=== PATIENT | female | born 1975 | race African-American/Black ===

== ENCOUNTER 2017-02-16 06:11 | Inpatient (IN) ==
[2017-02-16] MEDS ORDERED: SODIUM CHLORIDE 0.9% 1,000 ML IV STA ×2 (06:39→07:56)
[2017-02-16] MEDS ORDERED: ONDANSETRON 4 MG/2 ML VIAL IV STA (06:39)
[2017-02-16 07:11] LABS: Basophils # 0.1 10*3/uL (0.0-0.2); Basophils % 0.4 % (0.0-0.8); Eosinophils % 0.2 % (0.00-10.9); Hematocrit 40.7 VOL% (35.7-47.0); Hemoglobin 13.7 GM/DL (12.0-16.0); Immature Granulocytes % 0.6 %; Immature Granulocytes Absolute 0.08 #; Lymphocytes # 2.1 10*3/uL (1.4-4.0); Lymphocytes % 14.6 % (21.3-54.2); Mean Corpuscular HGB Conc 33.7 GM/DL (32-36); Mean Corpuscular Hemoglobin 31 PG (27-34); Mean Corpuscular Volume 92.3 FL (87-102); Mean Platelet Volume 11.9 FL (9.6-12.0); Monocytes # 0.8 10*3/uL (0.11-0.8); Monocytes % 5.6 % (1.7-12.7); Neutrophils % 78.6 % (38.7-73.9); Platelet Count 307 T/CUMM (130-400); Red Blood Count 4.41 MC/CUMM (3.8-5.5); Red Cell Distribution Width 13.4 % (9.3-17.3)
[2017-02-16 07:40] LABS: Albumin 4.2 G/DL (3.4-5.0); Bilirubin,Total 1.5 MG/DL (0.2-1.0); Calcium 9.7 MG/DL (8.5-10.1); Osmolality,Calculated 281.2 MOS/KG (273-304); Potassium 4.6 MMOL/L (3.5-5.1); Total Protein 7.9 G/DL (6.4-8.3)
[2017-02-16 08:08] LABS: Apearance,Urine Slightly Hazy (Clear); Bacteria,Urine Occasional /HPF (Few); Bilirubin,Urine Negative (Negative); Blood, Urine Negative (Negative); Calcium Oxalate Crystals,Urine Moderate /HPF (Few); Glucose,Urine (UA) Negative (Negative); Hyaline Casts,Urine 43 /LPF (0-3); Ketones,Urine Negative (Negative); Mucus,Urine Occasional /LPF (Occasional); Nitrite,Urine Negative (Negative); Protein,Urine 30 MG/DL; RBC,Urine 1 /HPF (0-4); Squamous Epithelial Cell,Urine Occasional /HPF (0-10); Urine Color Yellow (Yellow); Urine Specific Gravity 1.019 (1.001-1.035); Urine Urobilinogen < 2.0 EU/DL (0.2-1.0); WBC,Urine 1 /HPF (0-6)
--- NOTE | 2017-02-16 09:59 | CT Report ---
CT abdomen pelvis Indication: Intractable nausea vomiting Comparison: 05 August 2016 Technique: Axial CT imaging of the abdomen and pelvis is performed without intravenous contrast. Oral contrast was used Findings: Cardiac and lung bases are within normal limits CT abdomen: The liver spleen pancreas and adrenal glands are normal in size and density. No evidence of focal lesion is demonstrated in these solid organs. . The gallbladder is been removed. Kidneys are normal in size and density. No evidence of hydronephrosis or nephrolithiasis is seen. The bowel caliber is normal and no wall thickening or adjacent inflammatory change is seen. No evidence of free fluid or free air is present. Small fat-containing umbilical hernias are present. Appendix appears normal. CT pelvis: The bowel and bladder appear within normal limits. Soft tissue density is present in the right side of the pelvis 3.6 cm maximum dimension likely ovary appears increased since previous exam. The uterus is not seen. A left ovarian cyst on previous exam has resolved. Impression: Increased right ovary size when compared to previous study. No other significant changes. This CT exam was performed using one or more the following dose reduction techniques: Automated exposure control, adjustment of the MA and/or KV according to patient size, or use of iterative reconstruction technique. PROCEDURE INTERPRETED AT [facility] DEPARTMENT OF RADIOLOGY Final Report Signed by: Dr. Stuart De Guzman
--- NOTE | 2017-02-16 10:44 | Emergency Department Note ---
Roc Khanna Rolonda, am scribing for, and in the presence of, Richard Bowman MD 06:44. Colby Khanna Doug C, MD, personally performed the services described in this documentation, ascribed by Stephen Brian in my presence, and it is both accurate and complete . Arrival - Arrival Chief Complaint: Nausea/Vomiting/Diarrhea Stated Complaint: dizziness throw up cant keep food down ED Nursing Triage Note: c/o n/v with dizziness that started at approx 5pm yesterday. last bm was yesterday, pt reports bm was "soft". pt states that she has been unable to pass gas since. denies urinary s/s. Mode of Arrival: Ambulatory Limitations: No Limitations Source: Patient, Old Records Reviewed, RN Notes Reviewed - History of Present Illness HPI Narrative: Patient is a 41-year-old black female who presents to the emergency room with persistent nausea and vomiting and weakness beginning yesterday. Patient states she is unable to keep anything down and has vomited innumerable times. Patient states has not had any diarrhea and has not seen any blood in her vomitus. She denies melena. Patient states she feels weak and has had a subjective fever as well. Patient did take her blood pressure medicine this morning and she is hypotensive on arrival to the emergency room. She tells me she had a small bowel obstruction secondary to incarcerated hernia several years ago requiring emergency surgery. Patient states she is not having any abdominal pain this time. Onset (ago): day(s) Consistency: constant Severity: moderate Severity scale (1-10): 4 Date of Last Menstrual Period: hysterectomy Allergies/Adverse Reactions: Allergies Allergy/AdvReac Type Severity Reaction Status Date / Time No Known Allergies Allergy Verified 08/05/16 14:48 Home Medications: Home Medications Medication Instructions Recorded Confirmed Type Aspirin [Ecotrin] 81 mg PO DAILY #30 tablet. 01/17/16 02/16/17 Rx Citalopram [CeleXA] 40 mg PO DAILY 01/17/16 02/16/17 History Methocarbamol [Methocarbamol] 750 mg PO Q8H PRN 01/17/16 02/16/17 History tiZANidine [Zanaflex] 2 mg PO BEDTIME 01/17/16 02/16/17 History Hydrocodone/Acetaminophen [Murdo 1 each PO Q4H PRN 02/16/17 02/16/17 History 10-325 Tablet] Lisinopril/Hydrochlorothiazide 1 each PO DAILY 02/16/17 02/16/17 History [Lisinopril-Hctz 10-12.5 mg Tab] dimenhyDRINATE TAB [Dramamine] 50 mg PO Q4-6H PRN 02/16/17 02/16/17 History Review of System - Review of System 12 point system: reviewed and no additional remarkable complaints except as stated - Review of System Constitutional: Present: fever. Absent: chills Eyes: Absent: discharge Head/Ears/Nose/Throat: Absent: earache, epistaxis Respiratory: Absent: cough, respiratory distress Cardiovascular: Absent: chest pain, dyspnea on exertion Gastrointestinal: Present: nausea, vomiting Genitourinary female: Absent: dysuria Musculoskeletal: Absent: arm pain, back pain, neck pain Skin: Absent: rash Neurological: Present: vertigo. Absent: headache, numbness Medical,Surgical,& Family Hx - Medical History Cardio: History of: Hypertension Gastrointestinal: History of: GI Problems Musculoskeletal: History of: Musculoskeletal Problems (chronic pain) - Surgical History Abdominal Surgeries: Surgical HX of: Abdominal Surgery (sbo), Appendectomy, Cholecystectomy, Hernia Repair Reproductive Surgeries: Surgical HX of;: Hysterectomy - Social History Smoking Status: Never smoker Frequency of Alcohol Use: None Type of Drug Use: None Exam Vital Signs: Vital Signs Temperature 97.7 F 02/16/17 06:38 Pulse Rate 54 L 02/16/17 09:30 Respiratory Rate 16 02/16/17 09:30 Blood Pressure 114/53 02/16/17 09:30 O2 Sat by Pulse Oximetry 100 02/16/17 09:30 - General General appearance: alert, in no apparent distress - Head Head exam: Present: atraumatic, normocephalic - Eye Eye exam: Present: PERRL, EOMI - ENT ENT exam: Present: normal exam, mucous membranes moist. Absent: mucous membranes dry - Neck Neck exam: Present: full ROM. Absent: tenderness - Chest Chest inspection: Present: symmetric chest wall rise. Absent: tenderness - Respiratory Respiratory exam: Present: normal lung sounds bilaterally. Absent: wheezes - Cardiovascular Cardiovascular exam: Present: regular rate, normal rhythm, normal heart sounds. Absent: bradycardia - Abdominal Exam Abdominal exam: Present: soft, normal bowel sounds. Absent: tenderness, guarding, rebound - Extremities Exam Extremities exam: Present: full ROM. Absent: tenderness - Back Exam Back exam: Present: full ROM. Absent: tenderness - Neurological Exam Neurological exam: Present: alert, oriented X3, CN II-XII intact. Absent: motor sensory deficit - Psychiatric Psychiatric exam: Present: normal affect, normal mood - Skin Skin exam: Present: warm, dry, intact, normal color. Absent: rash Course Course Narrative: Patient's clinical presentation, laboratory and radiograph findings were discussed with Yoly who is covering the hospitalist service. She will see the patient here in the emergency room and evaluate for admission. Results - Labs CBC & BMP: 02/16/17 06:56 02/16/17 06:56 Lab Results: I have reviewed the patients labs Labs: Laboratory Tests 02/16/17 06:56 WBC 14.0 H RBC 4.41 Hgb 13.7 Hct 40.7 Plt Count 307 Neut % (Auto) 78.6 H Lymph % (Auto) 14.6 L Neut # (Auto) 11.0 H Laboratory Tests 02/16/17 06:56 Lactic Acid 1.2 Laboratory Tests 02/16/17 06:56 Sodium 134 L Potassium 4.6 Chloride 96 L Carbon Dioxide 29 BUN 50 H Creatinine 3.50 H GFR Calculation 19 Glucose 117 H Total Bilirubin 1.50 H AST 33 Alkaline Phosphatase 120 H Globulin 3.7 H Lipase 500.0 H Laboratory Tests 02/16/17 06:56 Urine pH 5.0 Ur Specific [place] 1.019 Urine Protein 30 Urine Glucose (UA) Negative Urine Ketones Negative Urine Blood Negative Urine Nitrate Negative Urine Bilirubin Negative Urine Urobilinogen < 2.0 H Urine Leukocytes Negative Urine RBC 1 Urine WBC 1 Ur Squamous Epith Cells Occasional Calcium Oxalate Crystal Moderate Urine Bacteria Occasional Hyaline Casts 43 Urine Mucus Occasional Ur Culture Indicated? Not indicated - Diagnostic Findings Procedure: CT Abdomen and Pelvis: report reviewed by me (Increased right ovary size when compared to previous study. No other significant changes.) Disposition Clinical Impression: Dehydration, Gastroenteritis Case discussed with: patient Disposition: Still a Patient Condition: Stable Time of Disposition: 10:43
[2017-02-16] MEDS ORDERED: MAGNESIUM SULF RIDER 4 GM in PREMIX 1 EACH IV PRN (10:54)
[2017-02-16] MEDS ORDERED: MAGNESIUM SULF RIDER 2 GM in PREMIX 1 EACH IV PRN (10:54)
[2017-02-16] MEDS ORDERED: POTASSIUM CHLORIDE RIDER 10 MEQ in PREMIX 1 EACH IV PRN (10:54)
[2017-02-16] MEDS ORDERED: ONDANSETRON 4 MG/2 ML VIAL IV PRN (10:54)
--- NOTE | 2017-02-16 11:41 | Hospitalist History & Physical ---
<Iris Hartda - Last Filed: 02/16/17 11:00> Assessment and Plan (1) Dehydration Status: Acute Assessment and plan: The patient is obviously dry. BUN and creatinine noted at 50 and 3.5. We will gently rehydrate, control nausea and vomiting, and reassess in a.m. Current Visit: Yes (2) Gastroenteritis Status: Acute Assessment and plan: We will start empiric antibiotic coverage, gently rehydrate, antiemetics, PPIs, DVT prophylaxis. Will reassess in a.m. Current Visit: Yes (3) Incarcerated ventral hernia Status: Acute Assessment and plan: Patient had incarcerated ventral hernia and pain in the past in which she was completely asymptomatic. We will monitor the patient very closely. At the time of the previous encounter in which the patient had an incarcerated ventral hernia, she experienced no abdominal pain or significant gastrointestinal symptoms. CT scan abdomen and pelvis was essentially unremarkable. We will monitor for any acute changes. Current Visit: No History of Present Illness Chief complaint: Nausea and vomiting History of present illness: This is a very pleasant 41-year-old female that presented to the ED at [facility] this morning for the evaluation of nausea and vomiting. Patient has a medical history significant for hypertension, small bowel obstruction, incarcerated ventral epigastric incisional hernia, and chronic pain. Patient has a surgical history of appendectomy, cholecystectomy, hysterectomy, and reduction of colon with mesh repair of hernia defect (2014). The patient reported the onset of symptoms 1 day prior to presentation. She reported multiple episodes of nausea and vomiting. In addition, the patient reported that she had gradually become weaker and been febrile on several occasions. She denied abdominal pain, hematochezia or melena at the time of ED encounter. She reported that the symptoms became unbearable and she decided to present to the ED for further evaluation. The patient was assessed at the time of ED presentation. She was noted to be grossly hypotensive; the blood pressure noted at 85/56 and experienced a gradual decline in her heart rate with a heart rate as low as 53. Fluid replacement was initiated; and the blood pressures improved. Labs were obtained ; complete blood count reported white blood cell count 14.0, hemoglobin 13.7, hematocrit 40.7, platelet count 307. Comprehensive metabolic profile reported sodium at 134, potassium 4.6, chloride 96, BUN 50, creatinine 3.50, glucose 117 , lactic acid 1.2, calcium 9.7, total bilirubin 1.50, AST 33, ALT 44, alkaline phosphatase 120, albumin 4.2, and lipase at 500.0. Urinalysis reported moderate amount of calcium oxalate crystals, occasional urine bacteria, and hyaline casts 243. CT scan abdomen and pelvis reported increased right ovary size when compared to previous study. After brief discussion with both Dr. Bowman and Dr. Munguia, the patient will be admitted to the hospitalist services for continuation of care. Patient's CODE STATUS has been discussed; patient is a FULL CODE. Medications have been reviewed and reconciled. Home Medications Medication Instructions Recorded Confirmed Type Methocarbamol [Methocarbamol] 750 mg PO Q8H PRN 01/17/16 02/16/17 History tiZANidine [Zanaflex] 2 mg PO BEDTIME 01/17/16 02/16/17 History Hydrocodone/Acetaminophen [[place]ay 1 each PO Q4H PRN 02/16/17 02/16/17 History 10-325 Tablet] Lisinopril/Hydrochlorothiazide 10 - 12.5 mg PO DAILY 02/16/17 02/16/17 History [Lisinopril-Hctz 10-12.5 mg Tab] Meclizine HCl 25 mg PO Q4HR PRN 02/16/17 02/16/17 History Allergies Allergy/AdvReac Type Severity Reaction Status Date / Time No Known Allergies Allergy Verified 08/05/16 14:48 Medical,Surgical,& Family Hx - Medical History Cardio: History of: Hypertension Gastrointestinal: History of: GI Problems Musculoskeletal: History of: Musculoskeletal Problems (chronic pain) - Surgical History Abdominal Surgeries: Surgical HX of: Abdominal Surgery (sbo), Appendectomy, Cholecystectomy, Hernia Repair Reproductive Surgeries: Surgical HX of;: Hysterectomy - Social History Smoking Status: Never smoker Frequency of Alcohol Use: None Type of Drug Use: None 12 point system: reviewed and no additional remarkable complaints except as stated Exam - Constitutional Vitals: Period Temp Pulse Resp BP Sys/Sutton Pulse Ox Last 24 Hr 97.5 F-97.7 F 53-89 16-18 74-114/49-61 97-100 General appearance: mild distress - Head Head exam: Present: normal inspection, normocephalic, atraumatic - Eye Eye exam: Present: EOMI Pupils: Present: RELL, normal accommodation - ENT ENT exam: Present: normal exam, normal external ear exam, normal oropharynx - Neck Neck exam: Present: normal inspection. Absent: lymphadenopathy, meningismus, thyromegaly - Respiratory Respiratory exam: Present: clear to auscultation bilaterally. Absent: rales, rhonchi, stridor, wheezes - Cardiovascular Cardiovascular exam: Present: bradycardia. Absent: carotid bruit, diastolic murmur, gallop, JVD, rubs, systolic murmur - GI/Abdominal GI/Abdominal exam: Present: normal bowel sounds, soft. Absent: firm, guarding, tenderness - Extremities Exam Extremities exam: Present: normal inspection, normal capillary refill, full ROM. Absent: edema - Back Exam Back exam: Present: normal inspection - Neurological Exam Neurological exam: Present: alert, oriented X3, CN II-XII intact - Psychiatric Psychiatric exam: Present: normal affect, normal mood - Skin Skin exam: Present: normal color, warm, dry Results - Labs CBC & BMP: 02/16/17 06:56 02/16/17 06:56 Lab Results: I have reviewed the past 24 hour labs <Sincere Munguia - Last Filed: 02/16/17 15:14> History of Present Illness History of present illness: Patient seen and examined independently of LEATHER SPONGER Tanner, agree with history, assessment and plan as documented. She reports nausea and vomiting starting last night, associated with dizziness and weakness. In the ED noted to have hypotension, acute kidney injury and mild leukocytosis. UA unimpressive. No overt signs of infection at this time. Will gently hydrate with IV fluids. Check CXR. Also of note is that her lipase is elevated some at 500, denies epigastric pain and is now asking for more food. Recheck labs in am. Exam - Constitutional Vitals: Period Temp Pulse Resp BP Sys/Sutton Pulse Ox Last 24 Hr 97.5 F-98.4 F 53-89 16-18 74-117/49-77 97-100 Results - Labs CBC & BMP: 02/16/17 06:56 02/16/17 06:56
[2017-02-16] MEDS: CIPROFLOXACIN INJ 400 MG in PREMIX 1 EACH IV SCH ×2 (13:17→22:08)
[2017-02-16] MEDS: SODIUM CHLORIDE 0.9% 1,000 ML IV SCH (13:17)
[2017-02-16] MEDS: PANTOPRAZOLE 40 MG VIAL IV SCH (13:17)
--- NOTE | 2017-02-16 18:31 | XRay Report ---
XR chest 1V portable Indication: Cough, leukocytosis Comparison: 17 January 2016 Findings: The heart and mediastinum are normal in size and configuration. The pulmonary vascularity is normal in caliber. No lung infiltrates, effusions, pneumothorax or other abnormality is demonstrated. Impression: Normal chest x-ray PROCEDURE INTERPRETED AT [facility] DEPARTMENT OF RADIOLOGY Final Report Signed by: Dr. Stuart De Guzman
[2017-02-17] MEDS: SODIUM CHLORIDE 0.9% 1,000 ML IV SCH ×4 (02:37→20:38)
[2017-02-17 07:17] LABS: Basophils # 0.1 10*3/uL (0.0-0.2); Basophils % 0.7 % (0.0-0.8); Eosinophils # 0.3 10*3/uL (0.0-0.87); Eosinophils % 4.1 % (0.00-10.9); Hemoglobin 10.9 GM/DL (12.0-16.0); Immature Granulocytes % 0.4 %; Immature Granulocytes Absolute 0.03 #; Lymphocytes # 3.4 10*3/uL (1.4-4.0); Lymphocytes % 47.9 % (21.3-54.2); Mean Corpuscular HGB Conc 32.1 GM/DL (32-36); Mean Corpuscular Hemoglobin 30 PG (27-34); Mean Corpuscular Volume 94.7 FL (87-102); Mean Platelet Volume 12.6 FL (9.6-12.0); Monocytes # 0.6 10*3/uL (0.11-0.8); Monocytes % 8.3 % (1.7-12.7); Neutrophils # 2.7 10*3/uL (1.4-7.4); Neutrophils % 38.6 % (38.7-73.9); Platelet Count 210 T/CUMM (130-400); Red Blood Count 3.59 MC/CUMM (3.8-5.5); Red Cell Distribution Width 13.6 % (9.3-17.3)
[2017-02-17 07:41] LABS: Albumin 3.1 G/DL (3.4-5.0); Bilirubin,Total 0.8 MG/DL (0.2-1.0); Calcium 8.2 MG/DL (8.5-10.1); Magnesium 2.3 MG/DL (1.8-2.4); Osmolality,Calculated 279.7 MOS/KG (273-304); Potassium 4.9 MMOL/L (3.5-5.1); Total Protein 5.8 G/DL (6.4-8.3)
[2017-02-17] MEDS: PANTOPRAZOLE 40 MG VIAL IV SCH (08:24)
[2017-02-17 09:20] LABS: Hypochromasia Slight; Microcytosis Slight; Platelet Estimate Adequate
[2017-02-17] MEDS: CIPROFLOXACIN INJ 400 MG in PREMIX 1 EACH IV SCH ×2 (10:50→23:07)
[2017-02-17] MEDS ORDERED: SODIUM CHLORIDE 0.9% 500 ML IV ONE (12:12)
--- NOTE | 2017-02-17 15:40 | Hospitalist Progress Note ---
Assessment and Plan (1) Dehydration Status: Acute Assessment and plan: Improving with IV fluids Current Visit: Yes (2) Gastroenteritis Status: Acute Assessment and plan: Improving Current Visit: Yes (3) Acute kidney injury Status: Acute Assessment and plan: Secondary to dehydration Improved with IV fluids Current Visit: Yes (4) Dizziness Status: Acute Assessment and plan: Positive for orthostatic hypotension Holding blood pressure meds, IV fluids CT head and cortiol levels Current Visit: Yes Hospitalist: Subjective Interval history: No acute events overnight. Patient feels better but is still dizzy with standing. Exam - Constitutional Vitals: Period Temp Pulse Resp BP Sys/Sutton Pulse Ox Last 24 Hr 97.0 F-98.5 F 56-74 17-20 82-131/42-71 96-100 General appearance: normal weight - Head Head exam: Present: normocephalic, atraumatic - Eye Eye exam: Present: EOMI Pupils: Present: RELL - ENT ENT exam: Present: normal exam - Neck Neck exam: Present: normal inspection - Respiratory Respiratory exam: Present: clear to auscultation bilaterally - Cardiovascular Cardiovascular exam: Present: regular rate and rhythm - GI/Abdominal GI/Abdominal exam: Present: normal bowel sounds, soft. Absent: tenderness - Extremities Exam Extremities exam: Present: normal inspection - Back Exam Back exam: Present: normal inspection - Neurological Exam Neurological exam: Present: alert, oriented X3 - Psychiatric Psychiatric exam: Present: normal affect, normal mood - Skin Skin exam: Present: warm, intact Results - Labs CBC & BMP: 02/17/17 06:02 02/17/17 06:02
--- NOTE | 2017-02-17 16:25 | ECHO Report ---
Kyle Tinajero Exam Date: 02/17/2017 10:23 Referring Physician: Technologist: Brenda Carver Age: 41 Ht (in): 63 Wt (lb): 186 Gender: F Exam Location: [facility] Echo Indications: nausea/vomiting, dizziness, dehydration, gastroenteritis, incarcerated ventral hernia BP: 90 / 70 HR: 65 Rhythm: Sinus Technical Quality: IMPRESSIONS Normal chamber sizes Normal LV systolic function with ejection fraction estimated 60% without segmental wall motion normality 1+ tricuspid regurgitation with RVSP 24 mmHg plus RAP Normal study MEASUREMENTS (Male / Female) Normal Values 2D ECHO LV Diastolic Diameter PLAX 4.3 cm 4.2 - 5.9 / 3.9 - 5.3 cm LV Systolic Diameter PLAX 2.4 cm LV Fractional Shortening PLAX 43.4 % IVS Diastolic Thickness 1.0 cm 0.6 - 1.0 / 0.6 - 0.9 cm LVPW Diastolic Thickness 1.0 cm 0.6 - 1.0 / 0.6 - 0.9 cm RV Internal Dim ED PLAX 2.7 cm Aortic Root Diameter 2.4 cm LA Systolic Diameter LX 2.9 cm 3.0 - 4.0 / 2.7 - 3.8 cm DOPPLER TR Peak Velocity 243.0 cm/s TR Peak Gradient 23.6 mmHg FINDINGS Left Ventricle Normal left ventricular size and systolic function. Normal diastolic function. left ventricular ejection fraction is estimated Right Ventricle Normal right ventricular size. Right Atrium Normal right atrial size. Left Atrium Normal left atrial size. Mitral Valve Morphologically normal mitral valve. Aortic Valve The aortic valve is trileaflet, delicate and has normal motion. Tricuspid Valve Morphologically normal tricuspid valve. Trace tricuspid valve regurgitation. Tricuspid regurgitation velocities suggest a PAP of 23.6 mmHg + RAP. Pulmonic Valve Morphologically normal pulmonic valve. Pericardium No pericardial effusion. Aorta Normal size aortic root and proximal ascending aorta. Marco Kyle (Electronically Signed) Final Date: 17 February 2017 16:24
--- NOTE | 2017-02-17 16:39 | CT Report ---
CT brain Indication: Vertigo Comparison: None available Technique: Axial CT imaging of the brain is performed without contrast with 3 mm increments. Findings: No evidence of hemorrhage, mass mass effect midline shift or acute infarct seen. The brain parenchyma attenuation and differentiation appears within normal limits. The ventricles and cisterns are normal in caliber. No cranial or skull base abnormality is identified. Impression: No evidence of abnormality demonstrated. This CT exam was performed using one or more the following dose reduction techniques: Automated exposure control, adjustment of the MA and/or KV according to patient size, or use of iterative reconstruction technique. PROCEDURE INTERPRETED AT [facility] DEPARTMENT OF RADIOLOGY Final Report Signed by: Dr. Stuart De Guzman
[2017-02-18 06:58] LABS: Basophils % 0.6 % (0.0-0.8); Eosinophils # 0.2 10*3/uL (0.0-0.87); Eosinophils % 4.7 % (0.00-10.9); Hematocrit 32.4 VOL% (35.7-47.0); Hemoglobin 10.6 GM/DL (12.0-16.0); Immature Granulocytes % 0.2 %; Immature Granulocytes Absolute 0.01 #; Lymphocytes # 2.2 10*3/uL (1.4-4.0); Lymphocytes % 44.9 % (21.3-54.2); Mean Corpuscular HGB Conc 32.7 GM/DL (32-36); Mean Corpuscular Hemoglobin 31 PG (27-34); Mean Corpuscular Volume 95.6 FL (87-102); Mean Platelet Volume 12.1 FL (9.6-12.0); Monocytes # 0.5 10*3/uL (0.11-0.8); Neutrophils # 1.9 10*3/uL (1.4-7.4); Neutrophils % 38.6 % (38.7-73.9); Platelet Count 183 T/CUMM (130-400); Red Blood Count 3.39 MC/CUMM (3.8-5.5); Red Cell Distribution Width 13.6 % (9.3-17.3); White Blood Count 4.9 T/CUMM (4-12)
[2017-02-18 07:32] LABS: Calcium 8.3 MG/DL (8.5-10.1); Eosinophils 4 % (0-10); Hypochromasia 1+; Lymphocytes 44 % (20-55); Magnesium 2.2 MG/DL (1.8-2.4); Osmolality,Calculated 281.3 MOS/KG (273-304); Ovalocytes Slight; Platelet Estimate Normal; Potassium 4.5 MMOL/L (3.5-5.1); Segmented Neutrophils 42 % (50-85); Total Cells Counted 100
[2017-02-18 07:33] LABS: Microcytosis Slight
[2017-02-18] MEDS: PANTOPRAZOLE 40 MG VIAL IV SCH (09:07)
[2017-02-18] MEDS: SODIUM CHLORIDE 0.9% 1,000 ML IV SCH ×2 (09:07→17:05)
[2017-02-18] MEDS: CIPROFLOXACIN INJ 400 MG in PREMIX 1 EACH IV SCH ×2 (11:04→22:11)
--- NOTE | 2017-02-18 17:32 | Hospitalist Progress Note ---
Assessment and Plan (1) Dehydration Status: Resolved Assessment and plan: Improving with IV fluids Current Visit: Yes (2) Gastroenteritis Status: Resolved Assessment and plan: Improving Current Visit: Yes (3) Acute kidney injury Status: Resolved Assessment and plan: Secondary to dehydration Improved with IV fluids Current Visit: Yes (4) Dizziness Status: Acute Assessment and plan: Positive for orthostatic hypotension Holding blood pressure meds, IV fluids CT head and cortiol levels Current Visit: Yes Hospitalist: Subjective Interval history: Patient is feeling better today. Denies any dizziness with standing. Am cortisol in low normal range. Possible discharge tomorrow. Exam - Constitutional Vitals: Period Temp Pulse Resp BP Sys/Sutton Pulse Ox Last 24 Hr 96.6 F-97.6 F 50-67 15-20 92-121/47-71 97-100 General appearance: normal weight - Head Head exam: Present: normocephalic, atraumatic - Eye Eye exam: Present: EOMI Pupils: Present: RELL - ENT ENT exam: Present: normal exam - Neck Neck exam: Present: normal inspection - Respiratory Respiratory exam: Present: clear to auscultation bilaterally - Cardiovascular Cardiovascular exam: Present: regular rate and rhythm - GI/Abdominal GI/Abdominal exam: Present: normal bowel sounds, soft. Absent: tenderness, rebound - Extremities Exam Extremities exam: Present: normal inspection - Back Exam Back exam: Present: normal inspection - Neurological Exam Neurological exam: Present: alert, oriented X3 - Psychiatric Psychiatric exam: Present: normal affect, normal mood - Skin Skin exam: Present: warm, intact Results - Labs CBC & BMP: 02/18/17 06:35 02/18/17 06:35
[2017-02-19] MEDS: SODIUM CHLORIDE 0.9% 1,000 ML IV SCH ×3 (04:17→13:57)
[2017-02-19] MEDS ORDERED: COSYNTROPIN 0.25 MG VIAL IV ONE (06:00)
--- NOTE | 2017-02-19 06:30 | EKG Report ---
Stationary ECG Study 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
--- NOTE | 2017-02-19 08:53 | Cardiology Consult Note ---
Rodrigo Khanna Vanessa, RN, am scribing for, and in the presence of, Cydney Licona DO 08 :52. Assessment and Plan - Time spent with patient Time spent with patient: Greater than 30 minutes (Due to assessment, planning, documentation, and medication review) (1) Bradycardia Status: Chronic Assessment and plan: Review of old chart reveals patient is chronically bradycardic with pulse rate ranging between 40 and 60 bpm. Patient is asymptomatic with this.. There is no AV block no intraventricular conduction delay she has not had syncope or near syncope. Her blood pressure is controlled. She states she occasionally has dyspnea. It might be reasonable to have the patient up and ambulated when she is clinically stable to ensure that she has appropriate chronotropic response. Nothing further to add at this time. I will be glad to see as an outpatient if needed. I discussed with Dr. Munguia. We will sign off. Please call if needed. Current Visit: Yes (2) Dizziness Status: Acute Assessment and plan: Patient has reported dizziness which was worse when standing up. She has not had any syncopal episodes. Patient is not experiencing significant bradycardia upon standing. Current Visit: Yes (3) Acute kidney injury Status: Resolved Current Visit: Yes (4) Gastroenteritis Status: Resolved Assessment and plan: This has resolved since admission. She has been treated with IV fluid and anti- emetics. Current Visit: Yes (5) Incarcerated ventral hernia Status: Chronic Assessment and plan: History of incarcerated ventral hernia. Clinically, no findings for incarcerated ventral hernia at this time. Current Visit: No (6) Hypertension Status: Chronic Assessment and plan: Well controlled at this time. This admission, patient has actually been hypotensive and has required IV fluid for volume support. Blood pressure has improved currently, she is not receiving any antihypertensive medications. Current Visit: Yes (7) GERD (gastroesophageal reflux disease) Status: Chronic Assessment and plan: PPI has been continued. 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 Tinajero is a 41 year old black female with risk factor significant for: hypertension. Past medical history includes GERD, small bowel obstruction, incarcerated ventral hernia, chronic pain. Patient was admitted to [facility] on February 16 after presenting to the ED with intractable nausea and vomiting for 24 hours prior to presentation. Upon evaluation, she was noted to be hypotensive with SBP in the 80s and bradycardic with pulse rate in the 50s. She also had an acute kidney injury with creatinine elevated at 3.5, and her lipase was greater than 500. She denied having any epigastric or abdominal pain. CT of abdomen and pelvis was benign for etiology of symptoms. Patient was admitted for hydration and treatment of gastroenteritis. Since admission, she has been gently hydrated with IV fluids. Nausea and vomiting has improved. Renal dysfunction has resolved with current creatinine 0.9. Patient has reported some dizziness which is worsened when standing. CT of the head negative for abnormality. Patient has also been given IV Cortrosyn, and she has had cortisol levels drawn which have been normal. Overnight, telemetry monitoring noted patient to have a brief heart rate of 35 and then returning to 40s. Twelve-lead EKG demonstrated sinus bradycardia in the 40s with no acute ischemic finding. Patient was asleep completely asymptomatic during this time. Cardiology was asked to see for evaluation of bradycardia. Ms. Tinajero has previously been evaluated by Dr. Ponce at [facility] for chest discomfort. In December 2015, she had a nuclear SPECT scan which showed no ischemia or EKG change. She had normal segmental wall motion with EF estimated at 58%. This admission, patient has had echocardiogram which demonstrates a normal LV size and systolic function, EF 60%, normal diastolic function, no significant valvular disease. Review of previous records dating back to 2014 note patient to have the pulse rate range between 40 and 60 bpm. In speaking with patient, she is not experiencing any dizziness, chest discomfort dyspnea, palpitations, presyncope, syncope, or other symptoms. Reports that during these times, she is sleeping. She denies snoring or holding of breath at night. Denies history of sleep apnea. Denies recent or current exertional chest pain or dyspnea. Denies orthopnea, PND, lower extremity edema. BP 107/60. Labs reviewed. H&H stable. Electrolytes within acceptable range. Creatinine 0.9, GFR 99. CC: Sincere Munguia MD - Home Medications and Allergies Home Medications: Home Medications Medication Instructions Recorded Confirmed Type Methocarbamol [Methocarbamol] 750 mg PO Q8H PRN 01/17/16 02/16/17 History tiZANidine [Zanaflex] 2 mg PO BEDTIME 01/17/16 02/16/17 History Hydrocodone/Acetaminophen [[place] 1 each PO Q4H PRN 02/16/17 02/16/17 History 10-325 Tablet] Lisinopril/Hydrochlorothiazide 10 - 12.5 mg PO DAILY 02/16/17 02/16/17 History [Lisinopril-Hctz 10-12.5 mg Tab] Meclizine HCl 25 mg PO Q4HR PRN 02/16/17 02/16/17 History Allergies/Adverse Reactions: Allergies Allergy/AdvReac Type Severity Reaction Status Date / Time No Known Allergies Allergy Verified 08/05/16 14:48 - Constitutional Constitutional: Present: fatigue. Absent: anorexia, chills, daytime sleepiness , excessive sweating, fever(s), frequent falls, lethargy, stops breathing during sleep, weakness, weight gain, weight loss - EENT Eyes: Absent: blurry vision, loss of vision Ears: Absent: decreased hearing Nose, mouth and throat: Absent: dysphagia, epistaxis, nasal congestion, neck pain, tongue swelling - Cardiovascular Cardiovascular: Present: other (No syncope no near syncope. She states she occasionally gets short of breath but this is not consistently reproducible. This occurs at her work at [employer]). Absent: chest pain at rest, chest pain with activity, dyspnea, dyspnea on exertion, edema, radiating jaw, neck or arm pain, lightheadedness, orthopnea, palpitations, PND - Respiratory Respiratory: Absent: cough, dyspnea, hemoptysis, dyspnea on exertion, change in phlegm color - Gastrointestinal Gastrointestinal: Absent: abdominal pain, constipation, cramping, diarrhea, dysphagia, early satiety, melena, nausea, vomiting - Genitourinary Genitourinary: Absent: dysuria, flank pain, hematuria - Musculoskeletal Musculoskeletal: Present: arthralgias, myalgias - Neurological Neurological: Absent: abnormal gait, confusion, dizziness, syncope, tremor(s) - Psychiatric Psychiatric: Absent: anxiety, confusion, depression - Endocrine Endocrine: Absent: cold intolerance, heat intolerance - Hematologic/Lymphatic Hematologic/Lymphatic: Absent: easy bleeding, easy bruising Medical,Surgical,& Family Hx - Medical History Cardio: History of: Hypertension No history of: Cardiac Dysrhythmia, CHF, CAD, [place], PVD, Valvular Heart Disease Psychological: No history of: Anxiety Disorders, Depression Neurology: No history of: Dementia, Seizures, TIA Endocrine: No history of: Diabetes Mellitus (IDDM), Dyslipidemia, Thyroid Disorder Respiratory: No history of: Bronchitis, Obstructive Sleep Apnea, Pulmonary Hypertension Renal: History of: Renal Problems (JUDITH this admission; resolved) Genitourinary: No history of: Recurring Urinary Tract Infections Gastrointestinal: History of: GERD, GI Problems No history of: Gastrointestinal Bleed, Hepatitis Musculoskeletal: History of: Musculoskeletal Problems (chronic pain) No history of: Back/Neck Problems Hematology: No history of: Anemia, Blood Transfusion Reaction Other: No history of: Cancer, HIV - Surgical History Cardiac Surgeries: Patient Denies: Cardiac Catheterization, Cardiac Surgery Thoracic Surgeries: Patient denies;: Organ Transplant Abdominal Surgeries: Surgical HX of: Abdominal Surgery (sbo), Appendectomy, Cholecystectomy, Hernia Repair Reproductive Surgeries: Surgical HX of;: Hysterectomy - Family History Family History: Reports;: Family Hypertension (mother and father) - Social History Smoking Status: Never smoker Frequency of Alcohol Use: None Type of Drug Use: None Functional capacity: independent ambulation Physical Examination Vital Signs Temp Pulse Resp BP Pulse Ox 97.5 F L 89 18 78/56 97 02/16/17 06:24 02/16/17 06:24 02/16/17 06:24 02/16/17 06:24 02/16/17 06:24 General: Present: No Apparent Distress HEENT: Present: PERRL, Normocephaly, Mucus Membranes Moist. Absent: Jaundice Neck: Present: Supple Neck, Midline Trachea, No JVD/HJR, No Masses, No Bruit Cardiac: Present: Regular Rhythm, No Murmur, Bradycardia (Heart rates about 50 when I examined her.) Lungs: Present: Clear Ascult./Percussion, No Wheeze, Rales, Rhonchi. Absent: Oxygen Neuro: Present: Grossly Intact. Absent: Numbness, Tingling, Weakness, Resting Tremor, Essential Tremor Abdomen: Present: Soft, Active Bowel Sounds, No Masses. Absent: Ascites, Tender , Firm Skin: Present: Clear. Absent: Rash, Suspicious Lesions, Bruising Extremities: Present: No Clubbing, No Cyanosis, No Edema, Normal Upper Extr. Pulses (3+ bilaterally), Normal Lower Extr. Pulses (3+ bilaterally), Capillary Refill (Normal), Other (Warm, dry) Result/EKG - Labs CBC & BMP: 02/18/17 06:35 02/18/17 06:35 Lab Results: I have reviewed the past 24 hour labs Labs: Laboratory Results - last 24 hr 02/18/17 02/18/17 02/19/17 06:35 08:04 06:15 Sodium 141 Potassium 4.5 Chloride 106 Carbon Dioxide 31 Anion Gap 8.5 BUN 17 Creatinine 0.90 GFR Calculation 99 BUN/Creatinine Ratio 18.00 Glucose 84 Calculated Osmolality 281.3 Calcium 8.3 L Magnesium 2.2 Cortisol Response Cortisol 8am Sample 5.3 - Diagnostic Findings Procedure: Chest x-ray: image reviewed by me, report reviewed by me, CT: image reviewed by me, report reviewed by me - EKG EKG results: interpreted by me, no acute changes EKG shows: bradycardia IMonae Shea, , personally performed the services described in this documentation, ascribed by Kellie Wallace RN in my presence, and it is both accurate and complete 852 .
[2017-02-19] MEDS: PANTOPRAZOLE 40 MG VIAL IV SCH (09:03)
[2017-02-19] MEDS: CIPROFLOXACIN INJ 400 MG in PREMIX 1 EACH IV SCH ×2 (09:03→13:56)
--- NOTE | 2017-02-19 09:13 | Discharge Summary ---
<Iris Hartda - Last Filed: 02/19/17 08:57> Hospital Course - Hospital Course Hospital Course: This is a 41-year-old female that presented to the ED at [facility] this morning of February 16, 2017 for the evaluation of nausea and vomiting. Patient has a medical history significant for hypertension, small bowel obstruction, incarcerated ventral epigastric incisional hernia, and chronic pain. Patient has a surgical history of appendectomy, cholecystectomy, hysterectomy, and reduction of colon with mesh repair of hernia defect (2014). The patient reported the onset of symptoms 1 day prior to presentation. She reported multiple episodes of nausea and vomiting. In addition, the patient reported that she had gradually become weaker and been febrile on several occasions. She denied abdominal pain, hematochezia or melena at the time of ED encounter. She reported that the symptoms became unbearable and she decided to present to the ED for further evaluation. The patient was assessed at the time of ED presentation. She was noted to be grossly hypotensive; the blood pressure noted at 85/56 and experienced a gradual decline in her heart rate with a heart rate as low as 53. Fluid replacement was initiated; and the blood pressures improved. Labs were obtained ; complete blood count reported white blood cell count 14.0, hemoglobin 13.7, hematocrit 40.7, platelet count 307. Comprehensive metabolic profile reported sodium at 134, potassium 4.6, chloride 96, BUN 50, creatinine 3.50, glucose 117 , lactic acid 1.2, calcium 9.7, total bilirubin 1.50, AST 33, ALT 44, alkaline phosphatase 120, albumin 4.2, and lipase at 500.0. Urinalysis reported moderate amount of calcium oxalate crystals, occasional urine bacteria, and hyaline casts 243. CT scan abdomen and pelvis reported increased right ovary size when compared to previous study. The patient was subsequently admitted to the hospitalist service for continuation of care. The patient was admitted and rehydrated. The patient verbalize complaints of dizziness upon standing. Orthostatic blood pressures were obtained which were positive for orthostatic hypotension. CT head without contrast was performed on February 17, 2017 which was essentially unremarkable for any acute intracranial processes. Echocardiogram was ordered at the time of admission and reported normal left ventricular systolic function with an ejection fraction estimated at 60% without segmental wall abnormality however +1 tricuspid regurgitation with R VSP 24 mmHg plus RAP. The patient's oral antihypertensive agents were held. Overnight the patient was noted to have profound bradycardia with a heart rate between 40 and 60. A cardiology evaluation was requested. The patient was determined to be chronically bradycardic with a pulse rate ranged between 40 and 60 however asymptomatic. EKG was evaluated in no intraventricular conduction delay was noted nor at the patient experienced any syncope or near syncope. Acute kidney injury resolved with IV hydration. Random cortisol and morning cortisol found to be in low normal range. Cosyntropin stimulation test was within normal limits. Patient is now doing better with no dizziness on standing. Orthostatic hypotension has resolved with IV hydration. If this problem returns a more in depth endocrinology work-up might be warranted. After cardiology evaluation, the patient is appropriate for discharge to follow- up with her primary care physician as indicated. She can return to work as early as 02/22/17. Diagnosis - Discharge Diagnosis (1) Dehydration Status: Resolved (2) Gastroenteritis Status: Resolved (3) Incarcerated ventral hernia Status: Chronic Discharge Plan - Discharge Data Disposition: Disch To Home/Self Care - Discharge Medications Continue tiZANidine [Zanaflex] 2 mg PO BEDTIME Hydrocodone/Acetaminophen [[place]idan 10-325 Tablet] 1 each PO Q4H PRN PRN Reason: Pain Discontinued Methocarbamol [Methocarbamol] 750 mg PO Q8H PRN PRN Reason: Muscle Spasm Lisinopril/Hydrochlorothiazide [Lisinopril-Hctz 10-12.5 mg Tab] 10 - 12.5 mg PO DAILY Meclizine HCl 25 mg PO Q4HR PRN PRN Reason: Motion Sickness - Follow Up or Referral - Forms/Instructions Instructions: Dehydration (GEN), Acute Kidney Injury (GEN), Bradycardia (GEN) Exam - Constitutional Vitals: Period Temp Pulse Resp BP Sys/Sutton Pulse Ox Last 24 Hr 96.8 F-98.5 F 41-64 14-20 100-131/54-70 93-100 Discharge Results Labs on day of discharge: Labs from last 24 hours 02/19/17 06:15 Cortisol Response DS: Provider Date of admission: 02/16/17 10:53 Primary care physician: . No PCP Attending physician on admission: Sincere Munguia MD Consults: 02/19/17 03:39 Consult to Physician [CONS] Routine Comment: bradycardia with HRs in the 30s Consulting Provider: Mack De When should Consulting Provider be notified: In am Person Notified: STEPHENIE Date Notified: 02/19/17 Time Notified: 09:30 Discharging clinician: Kori Hart CNP <Sincere Munguia - Last Filed: 02/19/17 10:45> Hospital Course - Time spent with patient Time with patient DS: Less than 30 minutes (35) Diagnosis - Discharge Diagnosis (1) Dehydration Status: Resolved (2) Gastroenteritis Status: Resolved (3) Acute kidney injury Status: Resolved (4) Dizziness Status: Resolved Discharge Plan - Discharge Data Condition at Discharge: Stable Discharge Diet: advance to your usual diet Activity: increase activity as tolerated Hygiene: no restrictions Weight Bearing at Discharge: weight bear as tolerated Contact your physician if you experience:: fever over 101 Exam - Constitutional General appearance: normal weight - Head Head exam: Present: normocephalic, atraumatic - Eye Eye exam: Present: EOMI Pupils: Present: RELL - ENT ENT exam: Present: normal exam - Neck Neck exam: Present: normal inspection - Respiratory Respiratory exam: Present: clear to auscultation bilaterally - Cardiovascular Cardiovascular exam: Present: regular rate and rhythm - GI/Abdominal GI/Abdominal exam: Present: normal bowel sounds, soft. Absent: tenderness, rebound - Extremities Exam Extremities exam: Present: normal inspection - Back Exam Back exam: Present: normal inspection - Neurological Exam Neurological exam: Present: alert, oriented X3 - Psychiatric Psychiatric exam: Present: normal affect, normal mood - Skin Skin exam: Present: warm, intact
[2017-02-26 11:44] VITALS: BP 131/80
== END 2017-02-19 13:00 | disposition home or self-care (01) | DRG 312 ==
LOC: N.ED 06:11 → N.EDINP 10:53 → N.5E 11:49
PROVIDERS: ADMIT Internal Medicine; ATTEND Internal Medicine

== ENCOUNTER 2017-02-24 23:53 | Observation (INO) ==
[2017-02-25] MEDS ORDERED: ONDANSETRON 4 MG/2 ML VIAL IV STA (01:13)
[2017-02-25] MEDS ORDERED: MORPHINE 2 MG/1 ML SYRINGE IV STA (01:13)
[2017-02-25] MEDS ORDERED: ALUM/MAG/SIMETH/LIDO VISC 1:1 30 ML BOTTLE PO STA (01:13)
[2017-02-25] MEDS ORDERED: ASPIRIN 325 MG TABLET PO STA (01:13)
[2017-02-25] MEDS ORDERED: NITROGLYCERIN 2% OINT 1 INCH/GM PACK TOP STA (01:13)
[2017-02-25] MEDS ORDERED: ONDANSETRON 4 MG/2 ML VIAL ONE (01:20)
[2017-02-25] MEDS ORDERED: ASPIRIN 325 MG TABLET ONE (01:21)
[2017-02-25] MEDS ORDERED: ALUM/MAG/SIMETH/LIDO VISC 1:1 30 ML BOTTLE PO ONE (01:21)
[2017-02-25] MEDS ORDERED: MORPHINE 2 MG/1 ML SYRINGE ONE (01:21)
[2017-02-25] MEDS ORDERED: NITROGLYCERIN 2% OINT 1 INCH/GM PACK TOP ONE (01:21)
[2017-02-25 01:28] LABS: Basophils % 0.3 % (0.0-0.8); Eosinophils # 0.2 10*3/uL (0.0-0.87); Eosinophils % 3.9 % (0.00-10.9); Hematocrit 34.5 VOL% (35.7-47.0); Hemoglobin 11.4 GM/DL (12.0-16.0); Immature Granulocytes % 0.2 %; Immature Granulocytes Absolute 0.01 #; Lymphocytes # 3.1 10*3/uL (1.4-4.0); Mean Corpuscular Hemoglobin 31 PG (27-34); Mean Platelet Volume 12.5 FL (9.6-12.0); Monocytes # 0.5 10*3/uL (0.11-0.8); Monocytes % 8.3 % (1.7-12.7); Neutrophils # 2.2 10*3/uL (1.4-7.4); Neutrophils % 36.3 % (38.7-73.9); Platelet Count 254 T/CUMM (130-400); Red Blood Count 3.67 MC/CUMM (3.8-5.5); Red Cell Distribution Width 13.5 % (9.3-17.3); White Blood Count 6.2 T/CUMM (4-12)
[2017-02-25 01:33] LABS: INR 0.9; PT Patient Result 9.9 SECS
--- NOTE | 2017-02-25 01:33 | Emergency Department Note ---
Delmis Khanna Mantricia, am scribing for, and in the presence of, Mak Gutiérrez MD 00:33. Brock Khanna Charles R, MD, personally performed the services described in this documentation, ascribed by Sharla Benites in my presence, and it is both accurate and complete . Arrival - Arrival Chief Complaint: Chest Pain Stated Complaint: chest pain, throwing up, legs and feet swollen ED Nursing Triage Note: pt presented to triage ambulatory with c/o L chest pain that radiates to back and n/v x 5 hrs. also c/o SOB and BLE edema x 2 day. PT states she was hopitalized and discharged on 02/19/17 for same symptoms Mode of Arrival: Ambulatory Limitations: No Limitations Source: Patient Time Seen by Provider: 02/25/17 00:27 - History of Present Illness HPI Narrative: Pt is a 41 y/o black female ambulating to ED with c/o left sided chest pain that onset 2 days ago. She states that she is also experiencing SOB, dizziness, back pain, and leg swelling bilaterally. She reports that she was admitted into the hospital on 02/19 for similar sxs. Pt denies seeing a configurator yet and states that she has not had a heart cath before. No other complaints were reported to ED. Onset (ago): day(s) Consistency: constant Severity: mild Date of Last Menstrual Period: hyst Allergies/Adverse Reactions: Allergies Allergy/AdvReac Type Severity Reaction Status Date / Time No Known Allergies Allergy Verified 08/05/16 14:48 Home Medications: Home Medications Medication Instructions Recorded Confirmed Type tiZANidine [Zanaflex] 2 mg PO BEDTIME 01/17/16 02/16/17 History Hydrocodone/Acetaminophen [[place] 1 each PO Q4H PRN 02/16/17 02/16/17 History 10-325 Tablet] Review of System - Review of System Constitutional: Absent: chills, diaphoresis, fever Respiratory: Present: other (SOB). Absent: cough Cardiovascular: Present: chest pain, edema Gastrointestinal: Present: nausea, vomiting. Absent: abdominal pain, diarrhea Musculoskeletal: Present: back pain, other (LE edema ). Absent: arm pain, leg pain, neck pain Neurological: Present: vertigo Medical,Surgical,& Family Hx - Medical History Cardio: History of: Hypertension No history of: Cardiac Dysrhythmia, CHF, CAD, [place], PVD, Valvular Heart Disease Psychological: No history of: Anxiety Disorders, Depression Neurology: No history of: Dementia, Seizures, TIA Endocrine: No history of: Diabetes Mellitus (IDDM), Dyslipidemia, Thyroid Disorder Respiratory: No history of: Bronchitis, Obstructive Sleep Apnea, Pulmonary Hypertension Renal: History of: Renal Problems (JUDITH this admission; resolved) Genitourinary: No history of: Recurring Urinary Tract Infections Gastrointestinal: History of: GERD, GI Problems No history of: Gastrointestinal Bleed, Hepatitis Musculoskeletal: History of: Musculoskeletal Problems (chronic pain) No history of: Back/Neck Problems Hematology: No history of: Anemia, Blood Transfusion Reaction Other: No history of: Cancer, HIV - Surgical History Cardiac Surgeries: Patient Denies: Cardiac Catheterization, Cardiac Surgery Thoracic Surgeries: Patient denies;: Organ Transplant Abdominal Surgeries: Surgical HX of: Abdominal Surgery (sbo), Appendectomy, Cholecystectomy, Hernia Repair Reproductive Surgeries: Surgical HX of;: Hysterectomy - Family History Family History: Reports;: Family Hypertension (mother and father) - Social History Smoking Status: Never smoker Frequency of Alcohol Use: None Type of Drug Use: None Exam Vital Signs: Vital Signs Temperature 97.8 F 02/25/17 00:01 Pulse Rate 67 02/25/17 00:01 Respiratory Rate 18 02/25/17 00:01 Blood Pressure 176/102 02/25/17 00:01 O2 Sat by Pulse Oximetry 99 02/25/17 00:01 - General General appearance: alert, in no apparent distress - Head Head exam: Present: atraumatic, normocephalic, normal inspection - Eye Eye exam: Present: normal appearance, PERRL, EOMI - ENT ENT exam: Present: normal exam, normal oropharynx, mucous membranes moist, TM's normal bilaterally, normal external ear exam - Neck Neck exam: Present: normal inspection, full ROM, trachea midline. Absent: tenderness - Chest Chest inspection: Present: normal inspection, symmetric chest wall rise, tenderness (reproducible) - Respiratory Respiratory exam: Present: normal lung sounds bilaterally - Cardiovascular Cardiovascular exam: Present: regular rate, normal rhythm, normal heart sounds - Abdominal Exam Abdominal exam: Present: soft, normal bowel sounds. Absent: distention, tenderness, guarding, rebound - Extremities Exam Extremities exam: Present: normal inspection, full ROM, normal capillary refill , other (+2 LE edema bilat). Absent: tenderness, pedal edema - Back Exam Back exam: Present: normal inspection, full ROM. Absent: tenderness - Neurological Exam Neurological exam: Present: alert, oriented X3, CN II-XII intact, normal gait, reflexes normal - Psychiatric Psychiatric exam: Present: normal affect, normal mood - Skin Skin exam: Present: warm, dry, intact, normal color Course - Reevaluation(s) Reevaluation #1: Patient still having chest pain shortness of breath. Time: 02:32 - Consultations Consultation #1: Hospitalist will admit patient Time: 02:33 Results - Labs CBC & BMP: 02/25/17 00:30 02/25/17 00:30 Lab Results: I have reviewed the patients labs Disposition Clinical Impression: Chest pain, GERD (gastroesophageal reflux disease), Atypical chest pain, Costalchondritis Case discussed with: patient Disposition: Still a Patient Condition: Stable Time of Disposition: 02:33
[2017-02-25 01:42] LABS: Alanine Aminotransferase 36 U/L (13-56); Albumin 3.6 G/DL (3.4-5.0); Alkaline Phosphatase 115 U/L (45-117); Aspartate Amino Transferase 27 U/L (0-37); Bilirubin,Total < 0.39 MG/DL (0.2-1.0); Blood Urea Nitrogen 20 MG/DL (7-18); Calcium 9.6 MG/DL (8.5-10.1); Glucose 79 MG/DL (74-106); Magnesium 2.2 MG/DL (1.8-2.4); Osmolality,Calculated 278.5 MOS/KG (273-304); Potassium 4.6 MMOL/L (3.5-5.1); Sodium 139 MMOL/L (136-145); Total Protein 6.7 G/DL (6.4-8.3)
[2017-02-25 01:57] LABS: Barbiturates Screen,Urine Negative (Negative); Benzodiazepines Screen,Urine Negative (Negative); Cannabinoid Screen,Urine Negative (Negative); Opiate Screen,Urine Positive (Negative); Phencyclidine Screen,Urine Negative (Negative)
[2017-02-25 01:58] LABS: Apearance,Urine CLEAR (Clear); Bilirubin,Urine Negative (Negative); Blood, Urine Negative (Negative); Glucose,Urine (UA) Negative (Negative); Ketones,Urine Negative (Negative); Mucus,Urine Occasional /LPF (Occasional); Nitrite,Urine Negative (Negative); Protein,Urine Negative; RBC,Urine <1 /HPF (0-4); Squamous Epithelial Cell,Urine Occasional /HPF (0-10); Urine Color Colorless (Yellow); Urine Specific Gravity 1.002 (1.001-1.035); Urine Urobilinogen < 2.0 EU/DL (0.2-1.0)
[2017-02-25] MEDS ORDERED: ENOXAPARIN 100 MG/ML SYRINGE SUBCUT STA (02:31)
[2017-02-25 02:59] LABS: Eosinophils 3 % (0-10); Lymphocytes 49 % (20-55); Segmented Neutrophils 40 % (50-85)
[2017-02-25 03:01] LABS: Anisocytosis Slight; Macrocytosis Slight
[2017-02-25 03:02] LABS: Atypical Lymphocytes Few; Platelet Estimate Normal; Total Cells Counted 100
[2017-02-25] MEDS ORDERED: ENOXAPARIN 100 MG/ML SYRINGE SUBCUT ONE (03:19)
--- NOTE | 2017-02-25 03:32 | Hospitalist History & Physical ---
Assessment and Plan (1) Atypical chest pain Status: Acute Current Visit: Yes (2) Costalchondritis Status: Acute Current Visit: Yes (3) Hypertension Status: Chronic Assessment and plan: We will admit the patient service. Patient be admitted to a monitored bed. We will consult cardiology draw serial cardiac enzymes. Her pain is very atypical but she is concerned that it is her heart. Patient is currently on no home medications. Need to monitor her blood pressure while in hospital she might need to be discharged on blood pressure medicines. Current Visit: No History of Present Illness Chief complaint: Chest pain History of present illness: Ms. Tinajero is a 41 year old female with past medical history significant for hypertension who was recently admitted for acute kidney injury. Patient was discharged approximately 5 days ago with normal creatinine. Patient again returns today with chief complaint of chest pain. She reports that it sharp makes her feel short of breath makes her break out in a sweat. She also reports some dizziness and she got nausea. She is complaining about lower extremity edema and she is concerned that it is her heart. I was consulted to admit her through the emergency room. Home Medications Medication Instructions Recorded Confirmed Type tiZANidine [Zanaflex] 2 mg PO BEDTIME 01/17/16 02/16/17 History Hydrocodone/Acetaminophen [[place] 1 each PO Q4H PRN 02/16/17 02/16/17 History 10-325 Tablet] Allergies Allergy/AdvReac Type Severity Reaction Status Date / Time No Known Allergies Allergy Verified 08/05/16 14:48 Medical,Surgical,& Family Hx - Medical History Cardio: History of: Hypertension No history of: Cardiac Dysrhythmia, CHF, CAD, [place], PVD, Valvular Heart Disease Psychological: No history of: Anxiety Disorders, Depression Neurology: No history of: Dementia, Seizures, TIA Endocrine: No history of: Diabetes Mellitus (IDDM), Dyslipidemia, Thyroid Disorder Respiratory: No history of: Bronchitis, Obstructive Sleep Apnea, Pulmonary Hypertension Renal: History of: Renal Problems (JUDITH this admission; resolved) Genitourinary: No history of: Recurring Urinary Tract Infections Gastrointestinal: History of: GERD, GI Problems No history of: Gastrointestinal Bleed, Hepatitis Musculoskeletal: History of: Musculoskeletal Problems (chronic pain) No history of: Back/Neck Problems Hematology: No history of: Anemia, Blood Transfusion Reaction Other: No history of: Cancer, HIV - Surgical History Cardiac Surgeries: Patient Denies: Cardiac Catheterization, Cardiac Surgery Thoracic Surgeries: Patient denies;: Organ Transplant Abdominal Surgeries: Surgical HX of: Abdominal Surgery (sbo), Appendectomy, Cholecystectomy, Hernia Repair Reproductive Surgeries: Surgical HX of;: Hysterectomy - Family History Family History: Reports;: Family Hypertension (mother and father) - Social History Smoking Status: Never smoker Frequency of Alcohol Use: None Type of Drug Use: None 12 point system: reviewed and no additional remarkable complaints except as stated Exam - Constitutional Vitals: Period Temp Pulse Resp BP Sys/Sutton Pulse Ox Last 24 Hr 97.8 F 67 18 176/102 99 - General General appearance: alert, in no apparent distress - Head Head exam: Present: atraumatic, normocephalic, normal inspection - Eye Eye exam: Present: normal appearance, PERRL, EOMI - ENT ENT exam: Present: normal exam, normal oropharynx, mucous membranes moist, TM's normal bilaterally, normal external ear exam - Neck Neck exam: Present: normal inspection, full ROM, trachea midline. - Chest Chest inspection: Present: normal inspection, symmetric chest wall rise, tenderness is reproducible on chest wall - Respiratory Respiratory exam: Present: normal lung sounds bilaterally - Cardiovascular Cardiovascular exam: Present: regular rate, normal rhythm, normal heart sounds - Abdominal Exam Abdominal exam: Present: soft, normal bowel sounds. - Extremities Exam Extremities exam: Present: normal inspection, full ROM, normal capillary refill , other (+2 LE edema bilat) - Back Exam Back exam: Present: normal inspection, full ROM. Absent: tenderness - Neurological Exam Neurological exam: Present: alert, oriented X3, CN II-XII intact, normal gait, reflexes normal - Psychiatric Psychiatric exam: Present: normal affect, normal mood - Skin Skin exam: Present: warm, dry, intact, normal color Results - Labs CBC & BMP: 02/25/17 00:30 02/25/17 00:30
[2017-02-25] MEDS: SODIUM CHLORIDE 0.9% 1,000 ML IV SCH ×3 (04:15→18:36)
--- NOTE | 2017-02-25 05:25 | EKG Report ---
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
[2017-02-25] MEDS: MORPHINE 2 MG/1 ML SYRINGE IV PRN ×3 (06:00→21:54)
[2017-02-25] MEDS: ONDANSETRON 4 MG/2 ML VIAL IV PRN ×2 (06:03→21:54)
--- NOTE | 2017-02-25 06:05 | EKG Report ---
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
--- NOTE | 2017-02-25 07:20 | EKG Report ---
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
--- NOTE | 2017-02-25 07:39 | XRay Report ---
XR chest 1V portable Indication: Chest pain Comparison: Chest x-ray dated February 16, 2017 Technique: Single frontal view of the chest. Findings: The cardiomediastinal silhouette is stable in configuration. No focal consolidation, pleural effusion, or pneumothorax. Visualized osseous and surrounding soft tissue structures appear grossly unchanged. IMPRESSION: Stable chest x-ray without acute cardiopulmonary process demonstrated. PROCEDURE INTERPRETED AT [facility] DEPARTMENT OF RADIOLOGY Final Report Signed by: Dr Brody Portillo
[2017-02-25] MEDS: PANTOPRAZOLE 40 MG TABLET PO SCH (09:03)
[2017-02-25] MEDS: KETOROLAC 15 MG/1 ML VIAL IV PRN ×2 (09:42→17:02)
--- NOTE | 2017-02-25 12:13 | Hospitalist Progress Note ---
Assessment and Plan - Time spent with patient Time spent with patient: Greater than 30 minutes (1) Elevated lipase Status: Acute Current Visit: Yes (2) Hypertension Status: Chronic Current Visit: No (3) Atypical chest pain Status: Acute Current Visit: Yes (4) Costalchondritis Status: Acute Assessment and plan: Continue her current medication for possible costochondritis, await full cardiology workup. Continue IV fluid hydration. Elevated lipase, not sure if this is acute pancreatitis. Continue IV fluid hydration and trend her lipase levels. Continue antihypertensives. Current Visit: Yes Hospitalist: Subjective Interval history: 41-year-old lady who was admitted this morning for atypical chest pain to rule out acute coronary syndrome. So far initial workup has been negative, she is awaiting full cardiology workup and recommendation. She continues to complain of pain which does not respond to morphine, we started on Toradol with the hope that the anti-inflammatory effect will help her condition. No fever She is sleeping quietly at the time of my rounds Exam - Constitutional Vitals: Period Temp Pulse Resp BP Sys/Sutton Pulse Ox Last 24 Hr 97.1 F-98 F 58-72 14-18 80-176/33-102 95-100 Exam: - General General appearance: Sleeping quietly, in no apparent distress - Head Head exam: Present: atraumatic, normocephalic, normal inspection - Eye Eye exam: Present: normal appearance, PERRL, EOMI - ENT ENT exam: Present: normal exam, normal oropharynx, mucous membranes moist, TM's normal bilaterally, normal external ear exam - Neck Neck exam: Present: normal inspection, full ROM, trachea midline. - Chest Chest inspection: Present: normal inspection, symmetric chest wall rise, tenderness is reproducible on chest wall - Respiratory Respiratory exam: Present: normal lung sounds bilaterally - Cardiovascular Cardiovascular exam: Present: regular rate, normal rhythm, normal heart sounds - Abdominal Exam Abdominal exam: Present: soft, normal bowel sounds. - Extremities Exam Extremities exam: Present: normal inspection, full ROM, normal capillary refill , other (+2 LE edema bilat) - Back Exam Back exam: Present: normal inspection, full ROM. Absent: tenderness - Neurological Exam Neurological exam: Present: alert, oriented X3, CN II-XII intact, normal gait, reflexes normal - Psychiatric Psychiatric exam: Present: normal affect, normal mood - Skin Skin exam: Present: warm, dry, intact, normal color Results - Labs CBC & BMP: 02/25/17 00:30 02/25/17 00:30 Lab Results: I have reviewed the past 24 hour labs Specialty Discharge - Follow Up or Referrals Follow up with: Toby Ponce MD [Physician] - 2 Weeks (Outpatient appointment @ [facility] clinic for stress testing. Follow up appointment at [facility] with Dr. Ponce after stress testing.)
--- NOTE | 2017-02-25 13:12 | Cardiology Consult Note ---
Rodrigo Khanna Vanessa, RN, am scribing for, and in the presence of, Toby Ponce MD 13:11. Assessment and Plan - Time spent with patient Time spent with patient: Greater than 30 minutes (1) GERD (gastroesophageal reflux disease) Status: Chronic Assessment and plan: SEE PLAN OF CARE LISTED BELOW. Current Visit: Yes (2) Bradycardia Status: Chronic Assessment and plan: SEE PLAN OF CARE LISTED BELOW. Current Visit: No (3) Hypertension Status: Chronic Assessment and plan: SEE PLAN OF CARE LISTED BELOW. Current Visit: No (4) Atypical chest pain Status: Acute Assessment and plan: SEE PLAN OF CARE LISTED BELOW. Current Visit: Yes (5) Costalchondritis Status: Acute Assessment and plan: SEE PLAN OF CARE LISTED BELOW. Current Visit: Yes (6) Nausea and vomiting Status: Acute Assessment and plan: SEE PLAN OF CARE LISTED BELOW. Current Visit: Yes History of Present Illness - Data of Consult Patient: new to practice Consult date: 02/25/17 Requesting Physician: Dylon Fortune - Consult Narrative Reason for consult: chest pain History of present illness: PRIMARY DIRECTOR DRUG: DR. PONCE Ms. Tinajero is a very pleasant 41 year old black female with risk factors significant for: hypertension. Past medical history includes GERD, small bowel obstruction, incarcerated ventral hernia, chronic pain. Patient was just recently discharged from [facility] on February 19 after 3 day admission and treatment for intractable nausea and vomiting, acute kidney injury. She also had some orthostasis which improved after IV hydration antihypertensive medication adjustments. Patient was seen by Dr. Licona during that admission for evaluation of asymptomatic bradycardia, and review of old records showed patient is chronically bradycardia with heart rate ranging between 40 and 60 bpm. Echocardiogram during that admission with normal LV systolic function, EF 60%, trace TR with PA pressure 23.6 mmHg. Patient is now admitted to [facility] floor after presenting to the ER on February 24 complaining of left sided chest pain, N/V, dyspnea, dizziness, lower extremity edema, and back pain for 2 days. EKG negative for acute ischemic finding. Troponin nondetectable. BNP normal. Chest x-ray clear. Cardiology asked to evaluate chest pain. Ms. Tinajero has previously been evaluated by Dr. Ponce at [facility] for chest discomfort. In December 2015, she had a nuclear SPECT scan which showed no ischemia or EKG change. She had normal segmental wall motion with EF estimated at 58%. This admission, patient has had echocardiogram which demonstrates a normal LV size and systolic function, EF 60%, normal diastolic function, no significant valvular disease. Patient seen and examined. She is currently resting quietly. Reports she is having chest pain across entire chest, worse in right chest area with radiation to right neck and arm. No associated shortness of breath, diaphoresis. Recently received IV Toradol for pain with minimal relief. Reports she has had 2 episodes of nausea and vomiting this morning. No aggravating or alleviating factors identified. Chest wall is extremely tender with palpation during exam, and patient is certain this is the exact same chest discomfort she has been experiencing for a few days. Reports that after she was discharged from hospital last Saturday, she remained at home for 2 more days, during which time she says noticed her feet and legs were starting to swell. 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 Upon physical exam, minimal trace of lower extremity edema, and she reports that extremities are sore to touch. Serial troponin levels have remained normal. EKG demonstrates sinus michele/sinus rhythm, pulse 55-65. Denies dysphagia, cough. Denies recent pushing, pulling, lifting, straining. Some abd tenderness felt to be related to vomiting. No hematuria, hematochezia, hemoptysis. No exertional chest discomfort or dyspnea. No orthopnea, PND, palpitations. ASSESSMENT/PLAN: 1. CHEST PAIN - This appears to be atypical and noncardiac in nature. EKG and serial troponins have been negative for acute finding. Chest wall pain is atypical and reproducible. Continue treatment for costalchondritis. 2. HYPERTENSION - Chronic. Relatively well controlled at this time. Continue to monitor closely. Reintroduce antihypertensive medications as medical condition evolves and as indicated. 3. NAUSEA AND VOMITING - Continue anti-emetics, IV fluids. 4. GERD - Continue PPI. 5. BRADYCARDIA - Chronic; Continues to be stable and asymptomatic. Avoid rate reducing medications. This patient has noncardiac chest pain related to chest wall symptoms. She can be discharged at her convenience and we will sign off. I would be happy to see her as an outpatient to screen her for underlying ischemic disease and our plan is to have her scheduled to follow-up with me in 2 weeks. Call as needed. Thank you for the consult I have discussed in detail the particulars of this case and I have examined the patient and reviewed the patient's chart both current and old. I was directly involved in the patient's evaluation and management and I completely agree with Kellie Wallace RN regarding this patient's evaluation and treatment plan. CC: Monty Bloom MD - Home Medications and Allergies Allergies/Adverse Reactions: Allergies Allergy/AdvReac Type Severity Reaction Status Date / Time No Known Allergies Allergy Verified 08/05/16 14:48 - Constitutional Constitutional: Present: as per HPI - EENT Eyes: Present: as per HPI Ears: Present: as per HPI Nose, mouth and throat: Present: as per HPI - Cardiovascular Cardiovascular: Present: as per HPI - Respiratory Respiratory: Present: as per HPI - Gastrointestinal Gastrointestinal: Present: as per HPI - Genitourinary Genitourinary: Present: as per HPI - Musculoskeletal Musculoskeletal: Present: as per HPI - Neurological Neurological: Present: as per HPI - Psychiatric Psychiatric: Present: as per HPI - Endocrine Endocrine: Present: as per HPI - Hematologic/Lymphatic Hematologic/Lymphatic: Present: as per HPI Medical,Surgical,& Family Hx - Medical History Cardio: History of: Hypertension No history of: Cardiac Dysrhythmia, CHF, CAD, MT, PVD, Valvular Heart Disease Psychological: No history of: Anxiety Disorders, Depression Neurology: No history of: Dementia, Seizures, TIA Endocrine: No history of: Diabetes Mellitus (IDDM), Dyslipidemia, Thyroid Disorder Respiratory: No history of: Bronchitis, Obstructive Sleep Apnea, Pulmonary Hypertension Renal: History of: Renal Problems (JUDITH this admission; resolved) Genitourinary: No history of: Recurring Urinary Tract Infections Gastrointestinal: History of: GERD, GI Problems No history of: Gastrointestinal Bleed, Hepatitis Musculoskeletal: History of: Musculoskeletal Problems (chronic pain) No history of: Back/Neck Problems Hematology: No history of: Anemia, Blood Transfusion Reaction Other: No history of: Cancer, HIV - Surgical History Cardiac Surgeries: Patient Denies: Cardiac Catheterization, Cardiac Surgery Thoracic Surgeries: Patient denies;: Organ Transplant Abdominal Surgeries: Surgical HX of: Abdominal Surgery (sbo), Appendectomy, Cholecystectomy, Hernia Repair Reproductive Surgeries: Surgical HX of;: Hysterectomy - Family History Family History: Reports;: Family Cancer (Mother), Family Diabetes (Father), Family Heart Disease (HTN-Mother, Father, Sisters), Family Hypertension (mother and father) - Social History Smoking Status: Never smoker Frequency of Alcohol Use: None Type of Drug Use: None Physical Examination Vital Signs Temp Pulse Resp BP Pulse Ox 97.8 F 67 18 176/102 99 02/25/17 00:01 02/25/17 00:01 02/25/17 00:01 02/25/17 00:01 02/25/17 00:01 General: Present: No Apparent Distress HEENT: Present: PERRL, Normocephaly. Absent: Jaundice, Pallor, EOMI Neck: Present: Supple Neck, Midline Trachea, No JVD/HJR, No Bruit Cardiac: Present: Regular Rhythm, No Murmur, Bradycardia (pulse rate 55-60) Lungs: Present: Normal Exam, Clear Ascult./Percussion, No Wheeze, Rales, Rhonchi. Absent: Oxygen Neuro: Present: Grossly Intact. Absent: Numbness, Tingling, Weakness, Resting Tremor, Essential Tremor Abdomen: Present: Soft, Active Bowel Sounds, No Masses, No Pulsations/Bruits, Tender. Absent: Ascites, Firm Skin: Present: Clear. Absent: Rash, Suspicious Lesions, Bruising Musculoskeletal: Present: No Fluid Collection, Normal Range of Motion Extremities: Present: No Clubbing, No Cyanosis, Normal Upper Extr. Pulses (3+ bilaterally), Normal Lower Extr. Pulses (3+ bilaterally), Edema (minimal to trace pretibial), Capillary Refill (normal) Result/EKG - Labs CBC & BMP: 02/25/17 00:30 02/25/17 00:30 Lab Results: I have reviewed the past 24 hour labs Labs: Laboratory Results - last 24 hr 02/25/17 02/25/17 02/25/17 00:30 00:30 00:30 WBC RBC Hgb Hct MCV MCH MCHC RDW Plt Count MPV Neut % (Auto) Lymph % (Auto) [place] % (Auto) Eos % (Auto) Baso % (Auto) Neut # (Auto) Lymph # (Auto) [place] # (Auto) Eos # (Auto) Baso # (Auto) Total Counted Immature Gran % Nucleated RBC % Immature Gran # Segmented Neutrophils Lymphocytes Monocytes Eosinophils Nucleated RBCs # Atypical Lymphocytes Platelet Estimate Immature Plt Fraction Anisocytosis Macrocytosis INR 0.9 PT Patient/Control Mix 9.9 D-Dimer, Quantitative Sodium 139 Potassium 4.6 Chloride 102 Carbon Dioxide 33 H Anion Gap 8.6 BUN 20 H Creatinine 1.00 GFR Calculation 87 BUN/Creatinine Ratio 20.00 Glucose 79 Calculated Osmolality 278.5 Calcium 9.6 Magnesium 2.2 Total Bilirubin < 0.39 AST 27 ALT 36 Alkaline Phosphatase 115 Troponin I B-Natriuretic Peptide Total Protein 6.7 Albumin 3.6 Globulin 3.1 Albumin/Globulin Ratio 1.1 Lipase 470.0 H Urine Color Colorless Urine Appearance Clear Urine pH 7.0 Ur Specific [place] 1.002 Urine Protein Negative Urine Glucose (UA) Negative Urine Ketones Negative Urine Blood Negative Urine Nitrate Negative Urine Bilirubin Negative Urine Urobilinogen < 2.0 H Urine Leukocytes Negative Urine RBC <1 Ur Squamous Epith Cells Occasional Urine Mucus Occasional Ur Culture Indicated? Not indicated Urine Opiates Screen Ur Barbiturates Screen Ur Phencyclidine Scrn U Amphetamine/Methamph U Benzodiazepines Scrn U Cocaine Metab Screen U Cannabinoids Screen 02/25/17 02/25/17 02/25/17 00:30 00:30 00:30 WBC 6.2 RBC 3.67 L Hgb 11.4 L Hct 34.5 L MCV 94.0 MCH 31 MCHC 33.0 RDW 13.5 Plt Count 254 MPV 12.5 H Neut % (Auto) 36.3 L Lymph % (Auto) 51.0 [place] % (Auto) 8.3 Eos % (Auto) 3.9 Baso % (Auto) 0.3 Neut # (Auto) 2.2 Lymph # (Auto) 3.1 [place] # (Auto) 0.5 Eos # (Auto) 0.2 Baso # (Auto) 0.0 Total Counted 100 Immature Gran % 0.2 Nucleated RBC % 0.0 Immature Gran # 0.01 Segmented Neutrophils 40 L Lymphocytes 49 Monocytes 8 Eosinophils 3 Nucleated RBCs # 0.00 Atypical Lymphocytes Few Platelet Estimate Normal Immature Plt Fraction 0.0 Anisocytosis Slight Macrocytosis Slight INR PT Patient/Control Mix D-Dimer, Quantitative Sodium Potassium Chloride Carbon Dioxide Anion Gap BUN Creatinine GFR Calculation BUN/Creatinine Ratio Glucose Calculated Osmolality Calcium Magnesium Total Bilirubin AST ALT Alkaline Phosphatase Troponin I B-Natriuretic Peptide 48 Total Protein Albumin Globulin Albumin/Globulin Ratio Lipase Urine Color Urine Appearance Urine pH Ur Specific [place] Urine Protein Urine Glucose (UA) Urine Ketones Urine Blood Urine Nitrate Urine Bilirubin Urine Urobilinogen Urine Leukocytes Urine RBC Ur Squamous Epith Cells Urine Mucus Ur Culture Indicated? Urine Opiates Screen Positive H Ur Barbiturates Screen Negative Ur Phencyclidine Scrn Negative U Amphetamine/Methamph Negative U Benzodiazepines Scrn Negative U Cocaine Metab Screen Negative U Cannabinoids Screen Negative 02/25/17 02/25/17 02/25/17 00:30 00:30 04:26 WBC RBC Hgb Hct MCV MCH MCHC RDW Plt Count MPV Neut % (Auto) Lymph % (Auto) [place] % (Auto) Eos % (Auto) Baso % (Auto) Neut # (Auto) Lymph # (Auto) [place] # (Auto) Eos # (Auto) Baso # (Auto) Total Counted Immature Gran % Nucleated RBC % Immature Gran # Segmented Neutrophils Lymphocytes Monocytes Eosinophils Nucleated RBCs # Atypical Lymphocytes Platelet Estimate Immature Plt Fraction Anisocytosis Macrocytosis INR PT Patient/Control Mix D-Dimer, Quantitative 2.3 Sodium Potassium Chloride Carbon Dioxide Anion Gap BUN Creatinine GFR Calculation BUN/Creatinine Ratio Glucose Calculated Osmolality Calcium Magnesium Total Bilirubin AST ALT Alkaline Phosphatase Troponin I < 0.015 < 0.015 B-Natriuretic Peptide Total Protein Albumin Globulin Albumin/Globulin Ratio Lipase Urine Color Urine Appearance Urine pH Ur Specific [place] Urine Protein Urine Glucose (UA) Urine Ketones Urine Blood Urine Nitrate Urine Bilirubin Urine Urobilinogen Urine Leukocytes Urine RBC Ur Squamous Epith Cells Urine Mucus Ur Culture Indicated? Urine Opiates Screen Ur Barbiturates Screen Ur Phencyclidine Scrn U Amphetamine/Methamph U Benzodiazepines Scrn U Cocaine Metab Screen U Cannabinoids Screen 02/25/17 06:22 WBC RBC Hgb Hct MCV MCH MCHC RDW Plt Count MPV Neut % (Auto) Lymph % (Auto) [place] % (Auto) Eos % (Auto) Baso % (Auto) Neut # (Auto) Lymph # (Auto) [place] # (Auto) Eos # (Auto) Baso # (Auto) Total Counted Immature Gran % Nucleated RBC % Immature Gran # Segmented Neutrophils Lymphocytes Monocytes Eosinophils Nucleated RBCs # Atypical Lymphocytes Platelet Estimate Immature Plt Fraction Anisocytosis Macrocytosis INR PT Patient/Control Mix D-Dimer, Quantitative Sodium Potassium Chloride Carbon Dioxide Anion Gap BUN Creatinine GFR Calculation BUN/Creatinine Ratio Glucose Calculated Osmolality Calcium Magnesium Total Bilirubin AST ALT Alkaline Phosphatase Troponin I < 0.015 B-Natriuretic Peptide Total Protein Albumin Globulin Albumin/Globulin Ratio Lipase Urine Color Urine Appearance Urine pH Ur Specific [place] Urine Protein Urine Glucose (UA) Urine Ketones Urine Blood Urine Nitrate Urine Bilirubin Urine Urobilinogen Urine Leukocytes Urine RBC Ur Squamous Epith Cells Urine Mucus Ur Culture Indicated? Urine Opiates Screen Ur Barbiturates Screen Ur Phencyclidine Scrn U Amphetamine/Methamph U Benzodiazepines Scrn U Cocaine Metab Screen U Cannabinoids Screen - Diagnostic Findings Procedure: Chest x-ray: image reviewed by me, report reviewed by me - EKG EKG results: interpreted by me, no acute changes (sinus bradycardia/ sinus rhythm, pulse rate 55-65) IKris Wesley, MD, personally performed the services described in this documentation, ascribed by Kellie Wallace RN in my presence, and it is both accurate and complete 311 .
[2017-02-26] MEDS: MORPHINE 2 MG/1 ML SYRINGE IV PRN ×2 (05:04→11:53)
[2017-02-26 06:04] LABS: Albumin 2.8 G/DL (3.4-5.0); Bilirubin,Total 1.4 MG/DL (0.2-1.0); Calcium 8.5 MG/DL (8.5-10.1); Magnesium 2.3 MG/DL (1.8-2.4); Osmolality,Calculated 284.1 MOS/KG (273-304); Potassium 4.4 MMOL/L (3.5-5.1); Risk Ratio 1.85; Thyroid Stimulating Hormone 0.454 uIU/ml (0.358-3.74); Total Protein 5.6 G/DL (6.4-8.3); VLDL CHOLESTEROL 7.8 MG/DL
[2017-02-26 06:08] LABS: Basophils % 0.3 % (0.0-0.8); Eosinophils # 0.2 10*3/uL (0.0-0.87); Eosinophils % 3.8 % (0.00-10.9); Hematocrit 33.1 VOL% (35.7-47.0); Hemoglobin 10.9 GM/DL (12.0-16.0); Immature Granulocytes % 0.5 %; Immature Granulocytes Absolute 0.02 #; Lymphocytes # 1.4 10*3/uL (1.4-4.0); Mean Corpuscular HGB Conc 32.9 GM/DL (32-36); Mean Corpuscular Hemoglobin 31 PG (27-34); Mean Corpuscular Volume 93.8 FL (87-102); Mean Platelet Volume 12.8 FL (9.6-12.0); Monocytes # 0.3 10*3/uL (0.11-0.8); Monocytes % 6.5 % (1.7-12.7); NRBC # 0.02 10*3/uL; Neutrophils # 2.1 10*3/uL (1.4-7.4); Neutrophils % 52.9 % (38.7-73.9); Platelet Count 357 T/CUMM (130-400); Red Blood Count 3.53 MC/CUMM (3.8-5.5); Red Cell Distribution Width 13.7 % (9.3-17.3)
[2017-02-26] MEDS: KETOROLAC 15 MG/1 ML VIAL IV PRN ×3 (08:10→21:27)
[2017-02-26] MEDS: ONDANSETRON 4 MG/2 ML VIAL IV PRN (08:14)
--- NOTE | 2017-02-26 08:31 | XRay Report ---
XR chest 1V portable Indication: SOB Comparison: Chest x-ray dated February 25, 2017 Technique: Single frontal view of the chest. Findings: The cardiomediastinal silhouette is stable in configuration. No focal consolidation, pleural effusion, or pneumothorax. Visualized osseous and surrounding soft tissue structures appear grossly unchanged. IMPRESSION: Stable chest x-ray without acute cardiopulmonary process demonstrated. PROCEDURE INTERPRETED AT [facility] DEPARTMENT OF RADIOLOGY Final Report Signed by: Dr Brody Portillo
[2017-02-26] MEDS: PANTOPRAZOLE 40 MG TABLET PO SCH (09:35)
[2017-02-26] MEDS: SODIUM CHLORIDE 0.9% 1,000 ML IV SCH ×2 (09:54→11:42)
--- NOTE | 2017-02-26 18:14 | Hospitalist Progress Note ---
Assessment and Plan (1) Atypical chest pain Status: Acute Assessment and plan: Noncardiac in origin. Cleared for discharge by cardiology. Home in a.m. Current Visit: Yes (2) Hypertension Status: Chronic Current Visit: Yes Qualifiers: Hypertension type: essential hypertension Qualified Code(s): I10 - Essential (primary) hypertension (3) GERD (gastroesophageal reflux disease) Status: Chronic Current Visit: Yes Hospitalist: Subjective Interval history: Patient seen and examined. No acute events overnight. Case discussed with nursing staff. Labs reviewed. Exam - Constitutional Vitals: Period Temp Pulse Resp BP Sys/Sutton Pulse Ox Last 24 Hr 96.8 F-99 F 58-63 16-20 119-136/63-79 97-100 Exam: Constitutional System: No distress. No tremulousness. Head: Normocephalic, atraumatic. Ears, Nose and Throat System: No pain or tenderness. No epistaxis or discharge Eyes System: Pupils equal, round, and reactive. Extraocular muscles intact. Neck: Supple, without adenopathy, No jugular venous distention. No thyromegaly, neck mass, or prior surgery apparent. Respiratory System: Chest clear to auscultation. Cardiovascular System: Heart with regular rate and rhythm. No murmur. GI System: Abdomen soft, nontender. Normo active bowel sounds present. Musculoskeletal System: limbs with no pedal edema. Full distal pulses. Neurological System: No discernable sensory deficit. No aphasia Psychiatric System: Conversation is rational Results - Labs CBC & BMP: 02/26/17 04:00 02/26/17 03:49 Lab Results: I have reviewed the past 24 hour labs Specialty Discharge - Follow Up or Referrals Follow up with: Toby Ponce MD [Physician] - 03/05/17 9:45 am (Outpatient appointment @ [facility] clinic for stress testing. Follow up appointment at [facility] with Dr. Ponce after stress testing. stress test Mar 05, 9:45 f/u Mar 13, 2:40 p.m)
[2017-02-27] MEDS: KETOROLAC 15 MG/1 ML VIAL IV PRN ×2 (04:07→09:45)
[2017-02-27] MEDS: PANTOPRAZOLE 40 MG TABLET PO SCH (08:04)
--- NOTE | 2017-02-27 11:05 | Discharge Summary ---
<Roberto Delatorre - Last Filed: 02/27/17 10:34> Hospital Course - Hospital Course Hospital Course: This patient is a 41-year-old female who was admitted on 02/25/2017 for atypical chest pain to rule out acute coronary syndrome. The patient was admitted to the hospital medicine service for cardiac workup. Her workup was negative. It was felt that the patient's chest pain was related to costochondritis and she was treated with Toradol and hope that the anti-inflammatory effect would help. On admission, the patient was also found to have elevated lipase and was continued on IV fluid hydration with trending of her lipase levels. Lipase did come down from 472 to 337 by day 2 of her hospital stay. The patient did have minimal relief with IV Toradol. Upon cardiology evaluation, the patient's chest pain was thought to be noncardiac in etiology. Dr. Ponce, cardiology, has signed off for the patient and recommends outpatient follow-up with him in 2 weeks. The remainder of her hospital course was uncomplicated. At this time the patient has reached maximum benefit from hospitalization and stable for discharge. She should follow up outpatient with Dr. Ponce as well as her PCP in 1-2 weeks. I have personally seen and examined this patient today. I agree with the above note as prepared by the advanced practice provider. I agree with the assessment and plan. - Time spent with patient Time with patient DS: Greater than 30 minutes Specialty Discharge - Follow Up or Referrals Follow up with: Toby Ponce MD [Physician] - 03/05/17 9:45 am (Outpatient appointment @ [facility] clinic for stress testing. Follow up appointment at [facility] with Dr. Ponce after stress testing. stress test Mar 05, 9:45 f/u Mar 13, 2:40 p.m) Discharge Plan - Discharge Data Disposition: Disch To Home/Self Care - Discharge Medications New Ibuprofen Tab [Motrin Tab] 200 mg PO Q6H PRN #100 tablet PRN Reason: Pain Omeprazole Magnesium [Prilosec Otc] 20 mg PO DAILY #30 tablet - Follow Up or Referral Follow Up: Toby Ponce MD [Physician] - 03/05/17 9:45 am (Outpatient appointment @ [facility] clinic for stress testing. Follow up appointment at [facility] with Dr. Ponce after stress testing. stress test Mar 05, 9:45 f/u Aug 16, 2:40 p.m) - Forms/Instructions Exam - Constitutional Vitals: Period Temp Pulse Resp BP Sys/Sutton Pulse Ox Last 24 Hr 96.8 F-98.3 F 51-63 16-20 114-136/57-67 100-100 DS: Provider Date of admission: 02/25/17 02:34 Primary care physician: . No PCP Attending physician on admission: Dylon Fortune MD Consults: 02/25/17 03:28 Consult to Physician [CONS] Routine Comment: Consulting Provider: Cardiology - [facility] When should Consulting Provider be notified: In am Person Notified: Alex Date Notified: 02/25/17 Time Notified: 07:45 02/25/17 04:14 Consult to Case Mgmt/Social Srvs [CONS] Routine Reason for Case Mgmt/Social Srvs: Discharge Planning Discharging clinician: Roberto JACKSON Expected date of discharge: 02/27/17 <Kemar Raymond - Last Filed: 02/27/17 11:13> Hospital Course - Time spent with patient Time with patient DS: Greater than 30 minutes (Total discharge time for this patient, including [id number] time, clinical documentation, medication reconciliation, and discharge planning was 36 minutes.) Diagnosis - Discharge Diagnosis (1) Atypical chest pain Status: Acute (2) Hypertension Status: Chronic (3) GERD (gastroesophageal reflux disease) Status: Chronic Discharge Plan - Discharge Data Condition at Discharge: Stable Discharge Diet: advance to your usual diet Activity: resume usual activities as tolerated Hygiene: no restrictions Weight Bearing at Discharge: full weight bearing Contact your physician if you experience:: fever over 101, Shortness of breath, pain uncontrolled by pain medications
[2017-02-27 11:33] VITALS: BP 141/63
== END 2017-02-27 13:07 | disposition home or self-care (01) ==
LOC: N.ED 23:53 → SUATTDRO 02-25 02:34 → INTOOBSV 02-25 02:34 → N.EDINP 02-25 02:34 → N.TELES 02-25 03:16
PROVIDERS: ADMIT Internal Medicine; ATTEND Family Medicine

== ENCOUNTER 2018-01-12 07:51 | Observation (INO) ==
[2018-01-12] MEDS ORDERED: SODIUM CHLORIDE 0.9% 500 ML IV STA (09:13)
[2018-01-12 10:52] LABS: Basophils # 0.1 10*3/uL (0.0-0.2); Eosinophils # 0.1 10*3/uL (0.0-0.87); Eosinophils % 1.7 % (0.00-10.9); Hematocrit 40.3 VOL% (35.7-47.0); Hemoglobin 12.5 GM/DL (12.0-16.0); Immature Granulocytes % 0.3 %; Immature Granulocytes Absolute 0.02 #; Lymphocytes # 2.3 10*3/uL (1.4-4.0); Lymphocytes % 38.6 % (21.3-54.2); Mean Corpuscular Hemoglobin 28 PG (27-34); Mean Corpuscular Volume 88.8 FL (87-102); Mean Platelet Volume 11.5 FL (9.6-12.0); Monocytes # 0.5 10*3/uL (0.11-0.8); Monocytes % 7.6 % (1.7-12.7); Neutrophils # 3.1 10*3/uL (1.4-7.4); Neutrophils % 50.8 % (38.7-73.9); Platelet Count 269 T/CUMM (130-400); Red Blood Count 4.54 MC/CUMM (3.8-5.5); Red Cell Distribution Width 15.7 % (9.3-17.3)
[2018-01-12 11:11] LABS: Albumin 3.7 G/DL (3.4-5.0); Bilirubin,Total 0.9 MG/DL (0.2-1.0); Calcium 9.4 MG/DL (8.5-10.1); Osmolality,Calculated 286.1 MOS/KG (273-304); Potassium 4.1 MMOL/L (3.5-5.1); Total Protein 6.7 G/DL (6.4-8.3)
[2018-01-12 11:27] LABS: Apearance,Urine CLEAR (Clear); Bilirubin,Urine Negative (Negative); Blood, Urine Negative (Negative); Glucose,Urine (UA) Negative (Negative); Ketones,Urine Negative (Negative); Mucus,Urine Many /LPF (Occasional); Nitrite,Urine Negative (Negative); Protein,Urine Negative; Squamous Epithelial Cell,Urine Occasional /HPF (0-10); Urine Color Yellow (Yellow); WBC,Urine <1 /HPF (0-6)
[2018-01-12] MEDS ORDERED: ENOXAPARIN 40 MG/0.4 ML SYRINGE SUBCUT SCH (13:30)
[2018-01-12] MEDS ORDERED: ONDANSETRON 4 MG/2 ML VIAL IV PRN (13:38)
[2018-01-12] MEDS: SODIUM CHLORIDE 0.9% 1,000 ML IV SCH ×2 (14:25→22:21)
[2018-01-12] MEDS: METHOCARBAMOL 500 MG TABLET PO PRN ×2 (15:10→20:00)
[2018-01-12] MEDS: ASPIRIN EC 81 MG TABLET PO SCH (15:10)
[2018-01-13 05:43] LABS: Basophils # 0.1 10*3/uL (0.0-0.2); Basophils % 0.8 % (0.0-0.8); Eosinophils # 0.1 10*3/uL (0.0-0.87); Eosinophils % 2.3 % (0.00-10.9); Hemoglobin 11.9 GM/DL (12.0-16.0); Immature Granulocytes % 0.2 %; Immature Granulocytes Absolute 0.01 #; Lymphocytes # 2.6 10*3/uL (1.4-4.0); Lymphocytes % 43.6 % (21.3-54.2); Mean Corpuscular HGB Conc 32.2 GM/DL (32-36); Mean Corpuscular Hemoglobin 28 PG (27-34); Mean Corpuscular Volume 87.1 FL (87-102); Mean Platelet Volume 12.1 FL (9.6-12.0); Monocytes # 0.5 10*3/uL (0.11-0.8); Monocytes % 7.7 % (1.7-12.7); Neutrophils # 2.7 10*3/uL (1.4-7.4); Neutrophils % 45.4 % (38.7-73.9); Platelet Count 242 T/CUMM (130-400); Red Blood Count 4.25 MC/CUMM (3.8-5.5); Red Cell Distribution Width 15.9 % (9.3-17.3)
[2018-01-13 06:00] LABS: Risk Ratio 1.78; VLDL CHOLESTEROL 15.2 MG/DL
[2018-01-13 06:12] LABS: Calcium 8.2 MG/DL (8.5-10.1); Osmolality,Calculated 283.1 MOS/KG (273-304); Potassium 3.6 MMOL/L (3.5-5.1)
[2018-01-13] MEDS: SODIUM CHLORIDE 0.9% 1,000 ML IV SCH ×2 (07:15→15:33)
[2018-01-13] MEDS ORDERED: DIAZEPAM 5 MG TABLET PO ONE (10:30)
[2018-01-13] MEDS ORDERED: LIDOCAINE 1%/EPI INJ 20 ML VIAL ONE (10:39)
[2018-01-13] MEDS ORDERED: TISSUE ADHESIVE 1 EACH APPLICATOR TOP ONE ×2 (10:39→11:24)
[2018-01-13] MEDS ORDERED: LIDOCAINE 1%/EPI INJ 20 ML VIAL INFILTRAT ONE (11:23)
[2018-01-13] MEDS: METHOCARBAMOL 500 MG TABLET PO PRN (14:26)
[2018-01-13] MEDS: ASPIRIN EC 81 MG TABLET PO SCH (14:26)
[2018-01-13 16:30] VITALS: BP 143/81
== END 2018-01-13 17:00 | disposition home or self-care (01) ==
LOC: N.ED 07:51 → SUATTDRO 12:28 → INTOOBSV 12:28 → N.EDINP 12:28 → N.5E 12:44
PROVIDERS: ADMIT Hospitalist; ATTEND Internal Medicine

== ENCOUNTER 2018-04-27 05:14 | Observation (INO) ==
[2018-04-27] MEDS ORDERED: diphenhydrAMINE 50 MG/1 ML VIAL IV STA ×2 (05:47→05:52)
[2018-04-27] MEDS ORDERED: FAMOTIDINE 20 MG/2 ML VIAL IV STA ×2 (05:47→05:52)
[2018-04-27] MEDS ORDERED: methylPREDNISolone SOD SUC 125 MG/2 ML VIAL IV STA (05:47)
[2018-04-27] MEDS ORDERED: methylPREDNISolone SOD SUC 125 MG/2 ML VIAL ONE (05:48)
[2018-04-27] MEDS ORDERED: diphenhydrAMINE 50 MG/1 ML VIAL ONE (05:48)
[2018-04-27] MEDS ORDERED: FAMOTIDINE 20 MG/2 ML VIAL IV ONE (05:48)
[2018-04-27] MEDS ORDERED: LORazepam 2 MG/1 ML VIAL ONE (06:09)
[2018-04-27 06:41] LABS: Basophils % 0.4 % (0.0-0.8); Eosinophils # 0.1 10*3/uL (0.0-0.87); Eosinophils % 1.4 % (0.00-10.9); Hematocrit 40.1 VOL% (35.7-47.0); Hemoglobin 13.1 GM/DL (12.0-16.0); Immature Granulocytes % 0.4 %; Immature Granulocytes Absolute 0.02 #; Lymphocytes # 1.3 10*3/uL (1.4-4.0); Lymphocytes % 23.1 % (21.3-54.2); Mean Corpuscular HGB Conc 32.7 GM/DL (32-36); Mean Corpuscular Hemoglobin 29 PG (27-34); Mean Corpuscular Volume 88.5 FL (87-102); Monocytes # 0.3 10*3/uL (0.11-0.8); Monocytes % 4.5 % (1.7-12.7); Neutrophils # 3.9 10*3/uL (1.4-7.4); Neutrophils % 70.2 % (38.7-73.9); Platelet Count 268 T/CUMM (130-400); Red Blood Count 4.53 MC/CUMM (3.8-5.5); Red Cell Distribution Width 15.3 % (9.3-17.3); White Blood Count 5.5 T/CUMM (4-12)
[2018-04-27 06:51] LABS: Albumin 3.7 G/DL (3.4-5.0); Bilirubin,Total 0.6 MG/DL (0.2-1.0); Calcium 9.2 MG/DL (8.5-10.1); Osmolality,Calculated 275.8 MOS/KG (273-304); Potassium 4.2 MMOL/L (3.5-5.1); Total Protein 8.2 G/DL (6.4-8.3)
[2018-04-27] MEDS ORDERED: ONDANSETRON 4 MG/2 ML VIAL IV PRN (10:54)
[2018-04-27] MEDS ORDERED: diphenhydrAMINE 50 MG/1 ML VIAL IV PRN (10:57)
[2018-04-27] MEDS: SODIUM CHLORIDE 0.9% 1,000 ML IV SCH (11:23)
[2018-04-27 14:02] LABS: Apearance,Urine CLEAR (Clear); Bilirubin,Urine Negative (Negative); Blood, Urine Negative (Negative); Glucose,Urine (UA) Negative (Negative); Hyaline Casts,Urine 1 /LPF (0-3); Ketones,Urine Negative (Negative); Mucus,Urine Occasional /LPF (Occasional); Nitrite,Urine Negative (Negative); Protein,Urine Negative; Urine Color Straw (Yellow); Urine Specific Gravity 1.011 (1.001-1.035); Urine Urobilinogen < 2.0 EU/DL (0.2-1.0); WBC,Urine <1 /HPF (0-6)
[2018-04-27] MEDS: methylPREDNISolone SOD SUC 125 MG/2 ML VIAL IV SCH (20:52)
[2018-04-28 05:23] LABS: Hematocrit 36.9 VOL% (35.7-47.0); Immature Granulocytes % 0.5 %; Immature Granulocytes Absolute 0.05 #; Lymphocytes # 0.9 10*3/uL (1.4-4.0); Lymphocytes % 8.6 % (21.3-54.2); Mean Corpuscular HGB Conc 32.5 GM/DL (32-36); Mean Corpuscular Hemoglobin 29 PG (27-34); Mean Corpuscular Volume 88.9 FL (87-102); Mean Platelet Volume 12.2 FL (9.6-12.0); Monocytes # 0.1 10*3/uL (0.11-0.8); Monocytes % 0.9 % (1.7-12.7); Neutrophils # 9.3 10*3/uL (1.4-7.4); Platelet Count 269 T/CUMM (130-400); Red Blood Count 4.15 MC/CUMM (3.8-5.5); Red Cell Distribution Width 15.5 % (9.3-17.3); White Blood Count 10.4 T/CUMM (4-12)
[2018-04-28 05:37] LABS: Calcium 8.9 MG/DL (8.5-10.1); Osmolality,Calculated 276.8 MOS/KG (273-304); Potassium 4.3 MMOL/L (3.5-5.1)
[2018-04-28] MEDS: SODIUM CHLORIDE 0.9% 1,000 ML IV SCH (06:51)
[2018-04-28] MEDS: methylPREDNISolone SOD SUC 125 MG/2 ML VIAL IV SCH (09:47)
[2018-04-28 12:15] VITALS: BP 125/61
== END 2018-04-28 14:15 | disposition home or self-care (01) ==
LOC: N.ED 05:14 → N.EDINP 08:15 → SUATTDRO 08:15 → INTOOBSV 08:15 → N.3E 09:44
PROVIDERS: ADMIT Internal Medicine